=== PATIENT | female | born 1995 | race Caucasian/White ===

== ENCOUNTER 2019-07-12 06:51 | Outpatient (CLI) | payer OTHER, SELFPAY ==
[2019-07-12 07:15] LABS: Basophils Percent Auto 0.4 % (0.2-1.2); Eosinophils Absolute Auto 0.2 K/mm3 (0-0.3); Eosinophils Percent Auto 2.3 % (0-4.4); Hematocrit 41.3 % (37.0-47.0); Hemoglobin 13.8 g/dL (12.0-15.0); Immature Granulocyte Absolute 0.02 K/mm3 (0.00-0.031); Immature Granulocyte Percent A 0.3 % (0-0.5); Lymphocytes Absolute Auto 2.15 K/mm3 (0.9-3.2); Lymphocytes Percent Auto 29.3 % (18.3-44.2); Mean Corpuscular HGB Conc 33.4 g/dl (32-36); Mean Corpuscular Hemoglobin 29.4 pg (26-34); Mean Corpuscular Volume 87.9 fl (80-100); Mean Platelet Volume 10.1 fl (7.4-10.4); Monocytes Absolute Auto 0.6 K/mm3 (0.1-0.6); Neutrophils Absolute Auto 4.4 K/mm3 (1.3-6.7); Neutrophils Percent Auto 59.7 % (45.5-73.1); Platelet Count Result 278 k/mm3 (150-375); Red Cell Distribution Width 12.4 % (11.5-14.5); White Blood Count 7.3 K/mm3 (4.5-10.0)
[2019-07-12 07:28] LABS: Alanine Aminotransferase 32 U/L (4-35); Albumin Level 4.5 g/dL (3.5-5.1); Alkaline Phosphatase 56 U/L (38-126); Aspartate Amino Transferase 39 U/L (14-36); Bilirubin,Total 0.6 mg/dL (0.2-1.3); Blood Urea Nitrogen 16 mg/dL (7-17); Calcium 9.8 mg/dL (8.4-10.2); Carbon Dioxide 22 mmol/L (22-30); Chloride 103 mmol/L (98-107); Cholesterol 219 mg/dL (0-200); Estimated Glomerular Filt Rate > 60; Glucose 109 mg/dL (65-105); HDL Direct 42 mg/dL; Potassium 4.3 mmol/L (3.4-5.0); Sodium 138 mmol/L (137-145); Triglycerides 198 mg/dL (<150)
[2019-07-12 07:39] LABS: LDL Cholesterol Direct 174 mg/dL
== END 2019-07-12 06:52 | disposition home or self-care (01) ==
PROVIDERS: PCP Family Medicine; Visit Provider Nurse Practitioner
DX: R53.83 Other fatigue (principal); I10 Essential (primary) hypertension; E55.9 Vitamin D deficiency, unspecified; E78.5 Hyperlipidemia, unspecified
CPT/HCPCS: 36415; 80053; 80061; 82306; 84443; 85025

== ENCOUNTER 2019-12-19 07:55 | Outpatient (CLI) | payer OTHER, SELFPAY ==
[2019-12-19 08:38] LABS: Basophils Percent Auto 0.5 % (0.2-1.2); Eosinophils Absolute Auto 0.1 K/mm3 (0-0.3); Eosinophils Percent Auto 1.9 % (0-4.4); Hematocrit 41.7 % (37.0-47.0); Hemoglobin 13.7 g/dL (12.0-15.0); Immature Granulocyte Absolute 0.01 K/mm3 (0.00-0.031); Immature Granulocyte Percent A 0.2 % (0-0.5); Lymphocytes Absolute Auto 1.92 K/mm3 (0.9-3.2); Lymphocytes Percent Auto 30.8 % (18.3-44.2); Mean Corpuscular HGB Conc 32.9 g/dl (32-36); Mean Corpuscular Hemoglobin 29.8 pg (26-34); Mean Corpuscular Volume 90.8 fl (80-100); Mean Platelet Volume 10.4 fl (7.4-10.4); Monocytes Absolute Auto 0.5 K/mm3 (0.1-0.6); Monocytes Percent Auto 7.2 % (2.6-8.5); Neutrophils Absolute Auto 3.7 K/mm3 (1.3-6.7); Neutrophils Percent Auto 59.4 % (45.5-73.1); Platelet Count Result 248 k/mm3 (150-375); Red Blood Count 4.59 M/mm3 (4.2-5.4); Red Cell Distribution Width 12.6 % (11.5-14.5); White Blood Count 6.2 K/mm3 (4.5-10.0)
[2019-12-19 08:47] LABS: Hemoglobin A1C 5.1 % (<5.7)
[2019-12-19 08:52] LABS: Alanine Aminotransferase 35 U/L (4-35); Albumin Level 4.3 g/dL (3.5-5.1); Alkaline Phosphatase 59 U/L (38-126); Aspartate Amino Transferase 39 U/L (14-36); Bilirubin,Total 0.4 mg/dL (0.2-1.3); Blood Urea Nitrogen 14 mg/dL (7-17); Calcium 9.5 mg/dL (8.4-10.2); Carbon Dioxide 25 mmol/L (22-30); Chloride 106 mmol/L (98-107); Cholesterol 227 mg/dL (0-200); Estimated Glomerular Filt Rate > 60; Glucose 106 mg/dL (65-105); HDL Direct 45 mg/dL; Potassium 4.5 mmol/L (3.4-5.0); Sodium 139 mmol/L (137-145); Triglycerides 167 mg/dL (<150)
[2019-12-19 09:03] LABS: LDL Cholesterol Direct 166 mg/dL
[2019-12-19 09:52] LABS: Iron 80 ug/dL (37-170); Percent Iron Saturation 17 % (20-50); Vitamin D 25 Hydroxy 47.9 ng/mL
== END 2019-12-19 07:56 | disposition home or self-care (01) ==
LOC: ANHLAB 07:58
PROVIDERS: PCP Family Medicine; Visit Provider Nurse Practitioner
DX: E78.5 Hyperlipidemia, unspecified (principal); I10 Essential (primary) hypertension; R53.83 Other fatigue; E55.9 Vitamin D deficiency, unspecified; R73.9 Hyperglycemia, unspecified; E53.8 Deficiency of other specified B group vitamins
CPT/HCPCS: 36415; 80053; 80061; 82306; 82607; 83036; 83540; 83550; 84443; 85025

== ENCOUNTER 2021-01-21 06:44 | Outpatient (CLI) | payer OTHER, SELFPAY ==
[2021-01-21 07:40] LABS: Basophils Percent Auto 0.4 % (0.2-1.2); Eosinophils Absolute Auto 0.2 K/mm3 (0-0.3); Eosinophils Percent Auto 2.5 % (0-4.4); Hematocrit 41.2 % (37.0-47.0); Hemoglobin 13.3 g/dL (12.0-15.0); Immature Granulocyte Absolute 0.02 K/mm3 (0.00-0.031); Immature Granulocyte Percent A 0.3 % (0-0.5); Lymphocytes Absolute Auto 1.95 K/mm3 (0.9-3.2); Lymphocytes Percent Auto 28.7 % (18.3-44.2); Mean Corpuscular HGB Conc 32.3 g/dl (32-36); Mean Corpuscular Hemoglobin 28.9 pg (26-34); Mean Corpuscular Volume 89.6 fl (80-100); Mean Platelet Volume 10.3 fl (7.4-10.4); Monocytes Absolute Auto 0.6 K/mm3 (0.1-0.6); Monocytes Percent Auto 8.4 % (2.6-8.5); Neutrophils Absolute Auto 4.1 K/mm3 (1.3-6.7); Neutrophils Percent Auto 59.7 % (45.5-73.1); Platelet Count Result 288 k/mm3 (150-375); Red Cell Distribution Width 13.1 % (11.5-14.5); White Blood Count 6.8 K/mm3 (4.5-10.0)
[2021-01-21 07:44] LABS: Alanine Aminotransferase 35 U/L (4-35); Albumin Level 4.3 g/dL (3.5-5.1); Anion Gap 6 mmol/L (8-16); Aspartate Amino Transferase 38 U/L (14-36); Bilirubin,Total 0.6 mg/dL (0.2-1.3); Blood Urea Nitrogen 14 mg/dL (7-17); Calcium 9.7 mg/dL (8.4-10.2); Carbon Dioxide 25 mmol/L (22-30); Chloride 107 mmol/L (98-107); Cholesterol 248 mg/dL (0-200); Estimated Glomerular Filt Rate > 60; Glucose 118 mg/dL (65-110); HDL Direct 43 mg/dL; Potassium 4.3 mmol/L (3.4-5.0); Sodium 138 mmol/L (137-145); Triglycerides 197 mg/dL (<150)
[2021-01-21 07:45] LABS: Alkaline Phosphatase 71 U/L (38-126)
[2021-01-21 07:55] LABS: LDL Cholesterol Direct 149 mg/dL
== END 2021-01-21 06:45 | disposition home or self-care (01) ==
LOC: ANHLAB 06:47
PROVIDERS: PCP Family Medicine; Visit Provider Nurse Practitioner Family
DX: E78.5 Hyperlipidemia, unspecified (principal); D64.9 Anemia, unspecified; I10 Essential (primary) hypertension; R79.0 Abnormal level of blood mineral
CPT/HCPCS: 36415; 80053; 80061; 82728; 85025

== ENCOUNTER 2021-02-18 07:29 | Outpatient (CLI) | payer OTHER, SELFPAY ==
[2021-02-18 08:19] LABS: Erythrocyte Sedimentation Rate 16 mm/hr (0-20)
[2021-02-18 09:31] LABS: Rheumatoid Factor < 8.6 IU/ML (<12)
[2021-02-18 09:44] LABS: Hemoglobin A1C 5.1 % (<5.7)
== END 2021-02-18 07:30 | disposition home or self-care (01) ==
PROVIDERS: PCP Family Medicine; Visit Provider Nurse Practitioner Family
DX: R73.01 Impaired fasting glucose (principal); M79.643 Pain in unspecified hand
CPT/HCPCS: 36415; 83036; 85652; 86430

== ENCOUNTER 2021-07-27 10:22 | Outpatient (CLI) | payer OTHER, BC, SELFPAY ==
--- NOTE | ~2021-07-27 | XR_ITS ---
XR lumbar spine 2-3V DATE: 07/27/2021 12:02 INDICATION: Fall on ice one week ago. Back pain, sacrococcygeal pain TECHNIQUE: 3 views COMPARISON: None FINDINGS: There are 6 functional lumbar vertebrae. Normal alignment of the lumbar spine. No fracture or bone destruction or spondylolisthesis. Lumbar lumbosacral interspaces are well preserved. Spina bifida occulta at L6. The sacroiliac joints appear normal. IMPRESSION: Spina bifida occulta at L6 Reviewed, dictated and finalized at location A. LINE HANGER IMPRESSION: Spina bifida occulta at L6
== END 2021-07-27 10:23 | disposition home or self-care (01) ==
LOC: ANHIMG 10:35
PROVIDERS: PCP Family Medicine
DX: S30.0XXA Contusion of lower back and pelvis, initial encounter (principal); Q05.7 Lumbar spina bifida without hydrocephalus
CPT/HCPCS: 72100

== ENCOUNTER 2022-06-18 14:35 | Outpatient (CLI) | payer BC, SELFPAY ==
[2022-06-18] VITALS (21 sets, daily range): BP systolic 126–145; BP diastolic 85–95; PULSE 94–117; TEMP 36.7; O2SAT 98–100
[2022-06-18 15:44] LABS: Basophils Percent Auto 0.2 % (0.2-1.2); Eosinophils Absolute Auto 0.1 K/mm3 (0-0.3); Eosinophils Percent Auto 0.9 % (0-4.4); Hematocrit 37.5 % (37.0-47.0); Hemoglobin 12.2 g/dL (12.0-15.0); Immature Granulocyte Absolute 0.06 K/mm3 (0.00-0.031); Immature Granulocyte Percent A 0.5 % (0-0.5); Lymphocytes Absolute Auto 1.57 K/mm3 (0.9-3.2); Lymphocytes Percent Auto 14.2 % (18.3-44.2); Mean Corpuscular HGB Conc 32.5 g/dl (32-36); Mean Corpuscular Hemoglobin 27.5 pg (26-34); Mean Corpuscular Volume 84.5 fl (80-100); Mean Platelet Volume 10.7 fl (7.4-10.4); Monocytes Absolute Auto 0.7 K/mm3 (0.1-0.6); Monocytes Percent Auto 6.1 % (2.6-8.5); Neutrophils Absolute Auto 8.6 K/mm3 (1.3-6.7); Neutrophils Percent Auto 78.1 % (45.5-73.1); Platelet Count Result 231 k/mm3 (150-375); Red Blood Count 4.44 M/mm3 (4.2-5.4); Red Cell Distribution Width 14.8 % (11.5-14.5); White Blood Count 11.1 K/mm3 (4.5-10.0)
[2022-06-18 15:45] LABS: Appearance Urine Clear (Clear); Bilirubin Urine Negative (Negative); Blood Urine Trace-intact (Negative); Color Urine Yellow (Yellow); Glucose Urine UA Negative (Negative); Ketones Urine Negative (Negative); Leukocyte Esterase Ur Negative LEU/UL (Negative); Nitrate Urine Negative (Negative); Protein Urine 1+ mg/dL (Negative); Specific Grav Ur 1.015 (1.001-1.035); Urobilinogen Urine 0.2 mg/dL (<2.0)
[2022-06-18 15:54] LABS: Bacteria Urine Trace /hpf; Mucus Urine Rare /lpf; RBC Urine 0-2 /hpf (0-2); Squamous Epithelial Cell Urine Occasional /hpf (Few); WBC Urine 0-3 /hpf
[2022-06-18 15:57] LABS: Add Urine Microscopic? YES
[2022-06-18 16:03] LABS: Alanine Aminotransferase 19 U/L (6-35); Albumin Level 3.4 g/dL (3.5-5.1); Alkaline Phosphatase 222 U/L (38-126); Anion Gap 8 mmol/L (8-16); Aspartate Amino Transferase 23 U/L (14-36); Bilirubin,Total 0.4 mg/dL (0.2-1.3); Blood Urea Nitrogen 10 mg/dL (7-17); Calcium 9.5 mg/dL (8.4-10.2); Carbon Dioxide 20 mmol/L (22-30); Chloride 107 mmol/L (98-107); Estimated Glomerular Filt Rate > 60; Glucose 164 mg/dL (65-110); Potassium 4.1 mmol/L (3.4-5.0); Sodium 135 mmol/L (137-145); Uric Acid 7.4 mg/dL (2.5-7.5)
[2022-06-18 16:04] LABS: Creatinine Urine 115.4 mg/dL; Total Protein Urine Random 23 mg/dL
--- NOTE | 2022-06-18 17:06 | PC.NURSE ---
Dr. Leon informed of BP's, lab results, and reactive NST. Order for discharge received.
== END 2022-06-18 17:08 | disposition home or self-care (01) ==
LOC: ANHOBOP 14:40 → ANHOBPP 14:46
PROVIDERS: PCP Family Medicine; Visit Provider Obstetrics & Gynecology
DX: O13.9 Gestational [pregnancy-induced] hypertension without significant proteinuria, unspecified trimester (principal); Z3A.00 Weeks of gestation of pregnancy not specified
CPT/HCPCS: 36415; 59025; 80053; 81001; 82570; 84156; 84550; 85025; 99199

== ENCOUNTER 2022-06-22 12:25 | Outpatient (CLI) | payer BC, SELFPAY ==
[2022-06-22] VITALS (8 sets, daily range): BP systolic 119–148; BP diastolic 77–97; PULSE 86–106
[2022-06-22 13:35] LABS: Basophils Percent Auto 0.2 % (0.2-1.2); Eosinophils Absolute Auto 0.1 K/mm3 (0-0.3); Hematocrit 36.4 % (37.0-47.0); Hemoglobin 11.7 g/dL (12.0-15.0); Immature Granulocyte Absolute 0.09 K/mm3 (0.00-0.031); Immature Granulocyte Percent A 0.9 % (0-0.5); Lymphocytes Absolute Auto 1.45 K/mm3 (0.9-3.2); Lymphocytes Percent Auto 15.2 % (18.3-44.2); Mean Corpuscular HGB Conc 32.1 g/dl (32-36); Mean Corpuscular Hemoglobin 26.9 pg (26-34); Mean Corpuscular Volume 83.7 fl (80-100); Mean Platelet Volume 10.9 fl (7.4-10.4); Monocytes Absolute Auto 0.8 K/mm3 (0.1-0.6); Monocytes Percent Auto 8.3 % (2.6-8.5); Neutrophils Absolute Auto 7.1 K/mm3 (1.3-6.7); Neutrophils Percent Auto 74.4 % (45.5-73.1); Platelet Count Result 204 k/mm3 (150-375); Red Blood Count 4.35 M/mm3 (4.2-5.4); Red Cell Distribution Width 14.7 % (11.5-14.5); White Blood Count 9.5 K/mm3 (4.5-10.0)
--- NOTE | 2022-06-22 13:37 | PC.NURSE ---
Addendum entered by Maria Esther Gonzalez RN 06/22/22 13:38: Patient came in to be evaluated for elevated blood pressures. Has been monitoring BP at home. Patient states she had a headache which she took Tylenol for at 1015 before arrival. Now rating headache pain a 1 and does not want anything for nausea. Dr. Leon notified. Original Note: Paged Dr. Leon at 1303. Call returned at 1306. Discussed patient status, vitals, and tracing. Orders placed for PI orders. Will call back with results.
[2022-06-22 13:49] LABS: Alanine Aminotransferase 19 U/L (6-35); Albumin Level 3.3 g/dL (3.5-5.1); Alkaline Phosphatase 220 U/L (38-126); Anion Gap 8 mmol/L (8-16); Aspartate Amino Transferase 24 U/L (14-36); Bilirubin,Total 0.5 mg/dL (0.2-1.3); Blood Urea Nitrogen 9 mg/dL (7-17); Calcium 9.3 mg/dL (8.4-10.2); Carbon Dioxide 18 mmol/L (22-30); Chloride 110 mmol/L (98-107); Estimated Glomerular Filt Rate > 60; Glucose 93 mg/dL (65-110); Potassium 3.9 mmol/L (3.4-5.0); Sodium 136 mmol/L (137-145); Uric Acid 7.3 mg/dL (2.5-7.5)
[2022-06-22 14:03] LABS: Appearance Urine Clear (Clear); Bilirubin Urine Negative (Negative); Blood Urine Negative (Negative); Color Urine Yellow (Yellow); Glucose Urine UA Negative (Negative); Ketones Urine Negative (Negative); Leukocyte Esterase Ur Trace LEU/UL (NEGATIVE); Nitrate Urine Negative (Negative); Protein Urine Trace mg/dL (Negative); Specific Grav Ur 1.015 (1.001-1.035); Urobilinogen Urine 0.2 mg/dL (<2.0)
[2022-06-22 14:11] LABS: Creatinine Urine 159.9 mg/dL; Total Protein Urine Random 14 mg/dL; Ur Ttl Prot Creatinine Ratio 0.09 mg/mg (0-0.20)
[2022-06-22 14:12] LABS: Bacteria Urine Trace /hpf; Mucus Urine Rare /lpf; Squamous Epithelial Cell Urine Occasional /hpf (Few)
[2022-06-22 14:17] LABS: Add Urine Microscopic? YES
--- NOTE | 2022-06-22 14:18 | PC.NURSE ---
Spoke with Dr. Leon regarding patient's status, tracing, and lab values. Verbal orders for discharge. Patient agrees with plan of care and states she has no questions at this time.
== END 2022-06-22 14:24 | disposition home or self-care (01) ==
LOC: ANHOBOP 12:38 → ANHOBPP 12:39
PROVIDERS: PCP Family Medicine; Visit Provider Obstetrics & Gynecology
DX: O16.9 Unspecified maternal hypertension, unspecified trimester (principal)
CPT/HCPCS: 36415; 59025; 80053; 81001; 82570; 84156; 84550; 85025; 87086; 99199

== ENCOUNTER 2022-06-28 16:52 | Inpatient (IN) | payer BC, SELFPAY ==
[2022-06-28] VITALS (12 sets, daily range): BP systolic 124–136; BP diastolic 73–102; PULSE 87–106; TEMP 36.5
--- NOTE | 2022-06-28 17:36 | LDADM ---
This patient, Belen Auguste, was admitted to Labor/Delivery/Recovery 108 on 06/28/22 at 16:52. Plans for labor, pain management and were discussed with patient. Patient/family oriented to hospital policies and general routines including ID bracelet, bed and alarms, visiting hours, pain management, procedures, bathroom and other care routines, personal items, smoking policy, room service/diet and guest tray routines, security routines, and visiting hours. Patient/Family are encouraged to report perceived risks to care and to ask questions if they do not understand what they are told or what they should do. See OBIX for further documentation.
[2022-06-28 17:40] LABS: Basophils Percent Auto 0.2 % (0.2-1.2); Eosinophils Absolute Auto 0.1 K/mm3 (0-0.3); Eosinophils Percent Auto 0.6 % (0-4.4); Hematocrit 39.2 % (37.0-47.0); Hemoglobin 12.7 g/dL (12.0-15.0); Immature Granulocyte Absolute 0.06 K/mm3 (0.00-0.031); Immature Granulocyte Percent A 0.5 % (0-0.5); Lymphocytes Absolute Auto 1.62 K/mm3 (0.9-3.2); Lymphocytes Percent Auto 14.1 % (18.3-44.2); Mean Corpuscular HGB Conc 32.4 g/dl (32-36); Mean Corpuscular Volume 83.4 fl (80-100); Mean Platelet Volume 10.9 fl (7.4-10.4); Monocytes Absolute Auto 0.8 K/mm3 (0.1-0.6); Monocytes Percent Auto 7.3 % (2.6-8.5); Neutrophils Absolute Auto 8.9 K/mm3 (1.3-6.7); Neutrophils Percent Auto 77.3 % (45.5-73.1); Platelet Count Result 238 k/mm3 (150-375); Red Cell Distribution Width 14.8 % (11.5-14.5); White Blood Count 11.5 K/mm3 (4.5-10.0)
[2022-06-28] MEDS: DINOPROSTONE 10 MG VAG INSERT VAGINAL (17:43)
[2022-06-29] VITALS (157 sets, daily range): BP systolic 114–165; BP diastolic 64–120; PULSE 61–164; RESP 16–18; TEMP 36.4–36.9; O2SAT 93–100; BMI 41.3
[2022-06-29] MEDS: ZOLPIDEM TARTRATE (*CRX) 5 MG TABLET PO (01:10)
[2022-06-29] MEDS: LACTATED RINGERS 1,000 ML 125 ML IV CONT ×2 (05:37→08:06)
[2022-06-29] MEDS: OXYTOCIN 30 UNITS/NS 500 ML 30 UNITS/500 ML BAG 4 UNITS IV CONT (05:39)
--- NOTE | 2022-06-29 08:47 | WPDOBADMIT ---
Obstetrics - Admit Note Admission Note: record reviewed. Additions to the history and/or subsequent changes in the physical findings follow. 27 y/o G1 at 39 1/7 weeks gestation with CHTN, here for induction of labor. GBS neg. Cervidil last night, has been withdrawn. Is having painful contractions and has had SROM of clear fluid. Epidural in place. AVSS with bp 130-150/80-90 NST reactive TOCO: contractions every 2-4 min Cervix 8/100/0. IUPC placed. A: IUP at term with CHTN, here for induction of labor. P: Oxytocin. Anticipate .
--- NOTE | 2022-06-29 09:21 | WPDANESEPPF ---
Anes - Initial Pre Proc Eval Procedure: labor epidural Date/Time: 06/29/22 09:21 Surgeon: Rebel Leon MD Pre Op Diagnosis: labor pain Pre Op Diagnosis: IOL Patient Data Age: 27 Gender: F Height: Weight: Last Vital Signs Temp 36.4 C 06/29/22 06:53 Pulse 111 H 06/29/22 09:15 BP 144/93 H 06/29/22 09:15 Pulse Ox 100 06/29/22 09:20 O2 Del Method Room Air 06/28/22 17:36 Allergies Allergy/AdvReac Type Severity Reaction Status Date / Time No Known Allergies Allergy Verified 06/07/22 15:28 Home Medications Medication Instructions Recorded Confirmed Type prenat.vits,dustin,tkr-prre-iluzv 1 tablet PO DAILY 06/07/22 06/07/22 History Laboratory Tests 06/28/22 06/28/22 06/28/22 17:26 17:26 17:26 WBC 11.5 K/mm3 H K/mm3 (4.5-10.0) RBC 4.70 M/mm3 M/mm3 (4.2-5.4) Hgb 12.7 g/dL g/dL (12.0-15.0) Hct 39.2 % % (37.0-47.0) MCV 83.4 fl fl (80-100) MCH 27.0 pg pg (26-34) MCHC 32.4 g/dl g/dl (32-36) RDW 14.8 % H % (11.5-14.5) Plt Count 238 k/mm3 k/mm3 (150-375) MPV 10.9 fl H fl (7.4-10.4) Immature Gran % (Auto) 0.5 % % (0-0.5) Neut % (Auto) 77.3 % H % (45.5-73.1) Lymph % (Auto) 14.1 % L % (18.3-44.2) [place] % (Auto) 7.3 % % (2.6-8.5) Eos % (Auto) 0.6 % % (0-4.4) Baso % (Auto) 0.2 % % (0.2-1.2) Lymph # (Auto) 1.62 K/mm3 K/mm3 (0.9-3.2) [place] # (Auto) 0.8 K/mm3 H K/mm3 (0.1-0.6) Eos # (Auto) 0.1 K/mm3 K/mm3 (0-0.3) Baso # (Auto) 0.0 K/mm3 K/mm3 (0.0-0.1) Abs Immat Gran (auto) 0.06 K/mm3 H K/mm3 (0.00-0.031) Absolute Neuts (auto) 8.9 K/mm3 H K/mm3 (1.3-6.7) Absolute Nucleated RBC 0.0 K/mm3 K/mm3 (0.0-0.012) Nucleated RBC % 0.0 % % (0.0-0.2) RPR Pending Blood Type A Positive Antibody Screen Negative Patient hx anesthesia problems: none Family hx anesthesia problems: none Results Review: All pre-operative results and documents have been reviewed as part of the pre-operative evaluation. [facility] Past Medical History Medical History Anxiety Essential hypertension GERD without esophagitis Hyperlipidemia Family History Family History Father Hypertension Family history of elevated blood lipids Grandparent Hypertension Family history of malignant neoplasm of cervix Family history of malignant neoplasm of esophagus Social History Social History (Updated 02/05/21 @ 16:20 by Cherri Greene NP) Social History: , no children. 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 Smoking status: Never smoker Alcohol intake: current Substance use: never Lack of Transportation: No Lack of Food: Never True Current Housing: I Have Housing Concerned About Future Housing: No Difficulty Paying Gas/Electric Bills: No Difficulty Paying for Meds: No Currently Unemployed: No Education: Bachelor's Degree Difficulty w/ Childcare or Family Care: No Spiritual care concerns: No Anes - Eval Final PreProcedure Day of Procedure 06/29/22 09:21 Patient weight: morbidly obese ASA classification: III Anesthetic plan: proceed Anesthesia type and monitoring: regional epidural and standard monitoring Results Review: All pre-operative results and documents have been reviewed as part of the pre-operative evaluation. Informed Consent: The patient's anesthetic plan and its attendant risks and benefits were discussed with the patient/family/POA. Questions were solicited and answers provided to the satisfaction of the patient/family/POA.
[2022-06-29] MEDS: ONDANSETRON INJ 4 MG/2 ML VIAL IV PUSH (10:20)
[2022-06-29 12:32] LABS: Rapid Plasma Reagin Non-Reactive (NonReactive)
--- NOTE | 2022-06-29 14:07 | PM.OBPRVD ---
OB - Delivery Note Procedure Delivery date: 06/29/22 Procedure: Induction of labor with Events: Chronic Hypertension Induction method: Per Cervidil Protocol Delivery augmentation: Pitocin Delivery monitor: External FHT, External Uterine and Internal Uterine Route of delivery: Laceration Description: Perineal - 2nd Degree Delivery repair: vicryl (3-0) Specimen: Yes (cord blood, placenta) Quantitative Blood Loss (ml): 240 Anesthesia type: Epidural Disposition: PACU Complications: None Narrative: 27 y/o G1 at 39 1/7 weeks gestation who presented to the hospital for induction of labor. Cervidil was placed overnight, then withdrawn the next morning. She had SROM of clear fluid. Oxytocin was administered intravenously. She received an epidural for pain control. Her labor progressed and her cervix dilated completely. She pushed with good effort and delivered the infant's head to the perineum, followed by the body. The nose and mouth were bulb suctioned. After a delay, the cord was clamped and cut. The infant was handed off the field. Cord blood was collected. The placenta delivered spontaneously and was grossly normal in appearance. The usual 3 vessel cord was noted. A second degree midline perineal laceration was sustained. This was reapproximated using 3 0 Vicryl in the usual layered fashion. Excellent hemostasis resulted as did excellent reapproximation of the normal anatomy. Needle and instrument counts were correct. The patient was taken to recovery room in stable condition. The went to the nursery in stable condition. I was present and scrubbed for the entire delivery. Baby Date of : 06/29/22 Time of : 13:40 Weeks of gestation at delivery: 39 Weight (pounds): 7 Weight (ounces): 14 presentation: vertex position: Left Occiput Posterior Placenta delivery description: Spontaneous and Normal Configuration Cord Vessel Description: 3 Vessels and Delayed Cord Clamping score one minute: 9 score five minutes: 9
--- NOTE | 2022-06-29 14:11 | P.DS_ITS ---
DS: Admitting Diagnosis Discharge Date 07/01/22 Admitting Diagnosis IUP at 39 weeks Chronic HTN DS: Discharge Diagnosis Discharge Diagnosis (1) (normal spontaneous vaginal delivery): Code(s): O80 - Encounter for full-term uncomplicated delivery Status: Acute (2) Chronic hypertension affecting : Code(s): O10.919 - Unspecified pre-existing hypertension complicating , unspecified trimester Status: Acute OB - DS: Summary OB Procedures : None OB Procedures Intrapartum: Spontaneous Vag Delivery OB Procedures: : None Time Spent with Patient Time attestation: Total time spent providing and/or coordinating discharge services: DS: Data Data Completed and Pending Labs on day of discharge: Labs from last 24 hours 06/28/22 06/28/22 06/28/22 17:26 17:26 17:26 WBC 11.5 H RBC 4.70 Hgb 12.7 Hct 39.2 MCV 83.4 MCH 27.0 MCHC 32.4 RDW 14.8 H Plt Count 238 MPV 10.9 H Immature Gran % (Auto) 0.5 Neut % (Auto) 77.3 H Lymph % (Auto) 14.1 L Person % (Auto) 7.3 Eos % (Auto) 0.6 Baso % (Auto) 0.2 Lymph # (Auto) 1.62 Person # (Auto) 0.8 H Eos # (Auto) 0.1 Baso # (Auto) 0.0 Abs Immat Gran (auto) 0.06 H Absolute Neuts (auto) 8.9 H Absolute Nucleated RBC 0.0 Nucleated RBC % 0.0 RPR Non-reactive Blood Type A Positive Antibody Screen Negative Discharge Plan Discharge Attending physician on discharge: Rebel Leon Discharging Clinician: Rebel Leon Patient Disposition: Home, Self-Care Activity: pelvic rest Diet: regular Discharge Instructions: Call or return if temperature above 100.4? F, increased abdominal pain, increased vaginal bleeding or any new problems. Stand Alone Forms: General Discharge Information Follow-up/Referrals: Rebel Leon MD [Physician] - 6 Weeks Discharge Medications: New ibuprofen 600 mg tablet 600 mg PO Q6H PRN (Reason: cramps) Qty: 30 0RF Continued #2 Tablet 1 tablet PO DAILY Date of admission: 06/28/22 16:52 Primary Care Provider: Freddie Dash Admitting Provider: Rebel Leon Attending physician on admission: Rebel Leon Condition: Stable
[2022-06-29] MEDS: OXYTOCIN 30 UNITS/NS 500 ML 30 UNITS/500 ML BAG 125 UNITS IV CONT (14:16)
--- NOTE | 2022-06-29 16:45 | OBPPTRN ---
Patient transferred to post room #286 via wheelchair. Support person present. Oriented to unit, room, information board, rooming in, admission packet and security measures. Patient verbalizes understanding.
[2022-06-29] MEDS: IBUPROFEN 600 MG TABLET PO ×2 (17:19→23:40)
[2022-06-29] MEDS: DOCUSATE SODIUM 100 MG CAPSULE PO (17:19)
[2022-06-29] MEDS: ACETAMINOPHEN 325 MG TABLET 650 MG PO (20:30)
[2022-06-30] MEDS: ACETAMINOPHEN 325 MG TABLET 650 MG PO ×2 (04:10→23:00)
[2022-06-30 04:20] VITALS: BP 128/84; PULSE 85; RESP 18; TEMP 36.9
[2022-06-30 05:43] LABS: Hematocrit 32.6 % (37.0-47.0); Hemoglobin 10.6 g/dL (12.0-15.0)
[2022-06-30 07:55] VITALS: BP 112/64; PULSE 88; RESP 18; TEMP 37.1; O2SAT 100
[2022-06-30] MEDS: MULTIVIT/MIN/PREN/FOL AC/IRON TABLET 1 TAB PO (08:00)
[2022-06-30] MEDS: IBUPROFEN 600 MG TABLET PO ×3 (08:09→23:00)
[2022-06-30] MEDS: DOCUSATE SODIUM 100 MG CAPSULE PO ×2 (08:09→17:10)
[2022-06-30 11:30] VITALS: BP 133/80; PULSE 101; RESP 16; TEMP 37.3; O2SAT 100
--- NOTE | 2022-06-30 12:29 | PM.OBPNVD ---
OB - PN: Subj Subjective Date/time seen: 06/30/22 12:29 Narrative: Pain OK. OB - PN: Obj Data Labs 06/30/22 04:29 Labs: Laboratory Results - last 24 hr 06/28/22 06/30/22 17:26 04:29 Hgb 10.6 L Hct 32.6 L RPR Non-reactive OB - PN A/P Plan Comments: A: PPD#1, doing well. P: Routine care. Exam Psych: Other: AVSS ABD soft, nontender, fundus firm EXT nontender
--- NOTE | 2022-06-30 14:23 | WPDANLDPN2 ---
Anes-Prog Note L&D Date/Time: 06/30/22 14:23 Comfortable throughout: labor and delivery Neuraxial method: epidural Epidural/Spinal procedure site: clean & non-tender Neuro status: Neuro function grossly intact. Cardiovascular status: normal Respiratory status: normal Airway patency: baseline Mental status: baseline Post-Op hydration status: normal Vital Signs: Last Vital Signs Temp 37.3 C 06/30/22 11:30 Pulse 101 H 06/30/22 11:30 Resp 16 06/30/22 11:30 BP 133/80 06/30/22 11:30 Pulse Ox 100 06/30/22 11:30 O2 Del Method Room Air 06/29/22 20:30 Pain score (VAS): 06/08 I/O: Intake & Output 06/29/22 06/30/22 06/30/22 23:59 07:59 15:59 Intake Total 400 240 Output Total 95 Balance 305 240 Post-procedural complaints: none Patient feedback: Patient satisfied with anesthetic care. Other findings: small hot spot to right hip otherwise compfortable for L/D
--- NOTE | 2022-06-30 15:26 | PC.NURSE ---
[id number] Introductions were made, then consulted with patient to assess needs related to . Mother led the conversation with her?plans to feed?her infant and the?experience so far. Resources provided for inpatient and outpatient services with the mom/baby guide. Mother voiced understanding of information and requests assistance. Encouraged understanding of the benefits of skin to skin (demonstrating unwrapping and placing upright on her chest), stimulating with massage touch, changing positions to encourage wakefulness, how to watch for early feeding cues, responsive feeding, feeding on demand (aiming for 8-12 times in 24 hours, about every 2-3 hours), milk production, building/maintaining a milk supply, duration of feeding, signs of adequate intake/output and how to record on the feeding sheet. Reviewed positioning and ear, shoulder, hip alignment, supporting the breast to facilitate a deep latch, asymmetrical latch (off-center), leading with the chin with a big, open, wide gape and body close to mother. latched optimally to the left breast in football position. Education given to mother of how to visualize suck/swallow ratios and listen for drinking at the breast. Infant was able to maintain latch without discomfort to mother. Nipple care reviewed with optimal latch and good positioning. After an effective breastfeed infant was placed skin to skin with massage touch to stimulate for burps and to watch for feeding cues. Once feeding cues were visualized the was assisted in a laid-back cross cradle position to the right breast. Infant was effectively and mother denied pain. We reviewed how to watch and listen for swallowing at the breast and to keep actively with good rocking, suck, swallow ratios. Reviewed good handwashing when or touching the breast/nipples to prevent infection. Resources used to facilitate learning were used with the tool, mom and baby guide. Mother voiced understanding of skin to skin, stimulating with massage touch, responsive feedings, hand expressed colostrum, talking to infant to encourage if it has been 2 -2.5 hours since the start of the last , to call if does not latch, or if there is discomfort with . Resources provided for inpatient/outpatient with the mom/baby guide. Parents voiced understanding of information, demonstrated learning and will call if there is a request for assistance. Reported to the primary RN.
[2022-06-30 19:30] VITALS: BP 136/86; PULSE 99; RESP 18; TEMP 36.4
[2022-07-01] MEDS: IBUPROFEN 600 MG TABLET PO (05:10)
[2022-07-01] MEDS: MEASLES,MUMPS,RUBELLA VACCINE 0.5 ML VIAL SUB-Q (07:41)
[2022-07-01 08:21] VITALS: BP 128/84; PULSE 95; RESP 18; TEMP 36.6; O2SAT 99
[2022-07-01] MEDS: ACETAMINOPHEN 325 MG TABLET 650 MG PO (08:24)
[2022-07-01] MEDS: MULTIVIT/MIN/PREN/FOL AC/IRON TABLET 1 TAB PO (08:24)
--- NOTE | 2022-07-01 08:51 | PM.OBPNVD ---
OB - PN: Subj Subjective Date/time seen: 07/01/22 08:51 Narrative: Pain OK. Would like to go home. OB - PN: Obj Data Labs 06/30/22 04:29 OB - PN A/P Plan day: 2 Comments: A: PPD#2, doing well. P: Home to f/u 6 weeks. Exam Psych: Other: AVSS ABD soft, nontender, fundus firm EXT nontender
--- NOTE | 2022-07-01 11:33 | PC.NURSE ---
[id number] Purposely rounded to assess needs. Mother is demonstrating cross cradle position with latched to the right breast. RN observes space between infants cheek and mothers breast along with infants body turned away from the mother. Mother received the offer of repositioning infant and a more optimal latch. Mother repositioned infant to the right breast using the football positioning, supported with pillows to bring the to nipple level, waiting for the big, open, wide gape, then latching with chin buried into the breast, nose near with a mouthful of breast. Reminded mother of how to watch and listen for swallowing at the breast. Mother states the left nipple is sore and there is a approximate 1mm red spot in the middle of the left nipple exposed to air because mother states it is uncomfortable to have anything touching the nipple. Recommended breast shells and mother received them. Discussed healing with water, open to air,and protecting the nipple with good positioning and an optimal latch. Reminded parents to use good handwashing technique to prevent infection. Mother is feeding appropriately for growth of and understands stimulating infant to eat if needed. Infant has had adequate feedings in the last 24 hours meets the outcomes for weight, output and jaundice at this time. Mother states she is confident to continue effectively her infant at home, when to call for assistance and denies any additional assistance or education at this time. Reinforced understanding of milk production, transition of milk, signs of adequate intake, transition of stool, prevention/relief of engorgement, responsive watching for feeding cues, the different methods of stimulating to breastfeed 2-3 hours after the start of the last feeding, community resources, medication information reviewed per [employer] and when to call a provider using the resource of the mom and baby guide. Parents voiced understanding of the education shared. Reported to the primary RN.
--- NOTE | 2022-07-01 12:00 | PC.NURSE ---
Patient viewed the discharge video Mother & Baby Care, The First Two Weeks . Patient was given the opportunity and encouraged to ask questions. Patient verbalized understanding of information shared and has been given the mother/baby guide for home reference.
[2022-07-02 09:38] VITALS: BP 121/78; PULSE 91; RESP 20; TEMP 37.6; O2SAT 100
== END 2022-07-01 12:15 | disposition home or self-care (01) | DRG 807 ==
LOC: ANHLDR 06-29 13:13 → ANHOB2 06-29 16:47
PROVIDERS: Admitting Provider Obstetrics & Gynecology; PCP Family Medicine; Visit Provider Obstetrics & Gynecology
DX: O10.92 Unspecified pre-existing hypertension complicating childbirth (principal); Z37.0 Single live birth; Z3A.39 39 weeks gestation of pregnancy; O36.8330 Maternal care for abnormalities of the fetal heart rate or rhythm, third trimester, not applicable or unspecified; O70.1 Second degree perineal laceration during delivery
CPT/HCPCS: 36415; 84112; 85014; 85018; 85025; 86592; 86850; 86900; 86901; 88307; 90710; A9270; J2405; J2590; J2795; J7120

== ENCOUNTER 2022-08-04 16:44 | Emergency (ER) | payer BC, SELFPAY ==
--- NOTE | ~2022-08-04 | US_ITS ---
EXAMINATION: US abdomen limited DATE: 08/04/2022 20:06 INDICATION: epigastric pain, abnormal LFTs TECHNIQUE: Multiple grayscale and Doppler ultrasound images of limited portions of the abdomen were o btained. COMPARISON: None available. FINDINGS: The visualized portions of the pancreas are normal. The liver is normal with normal echogen icity and echotexture. No surface nodularity. Normal hepatopetal flow in the main portal vein. Multip le nonmobile, shadowing gallstones with twinkle artifact. No wall thickening or pericholecystic fluid . The common bile duct measures mm. There was no sonographic Aguilar sign, however the patient is repo rtedly on pain medication. IMPRESSION: Cholelithiasis. No sonographic evidence of cholecystitis, noting that the sonographic Aguilar sign is not reliable with concurrent administration of pain medications. Reviewed, dictated and finalized at location K. ESTATE SALES ASSOCIATE IMPRESSION: Cholelithiasis. No sonographic evidence of cholecystitis, noting that the sonog raphic Aguilar sign is not reliable with concurrent administration of pain medic ations.
[2022-08-04 17:13] VITALS: BP 145/91; PULSE 89; RESP 16; TEMP 36.4; O2SAT 100
[2022-08-04 17:59] LABS: Basophils Percent Auto 0.3 % (0.2-1.2); Eosinophils Absolute Auto 0.1 K/mm3 (0-0.3); Eosinophils Percent Auto 1.3 % (0-4.4); Hematocrit 42.6 % (37.0-47.0); Hemoglobin 13.7 g/dL (12.0-15.0); Immature Granulocyte Absolute 0.02 K/mm3 (0.00-0.031); Immature Granulocyte Percent A 0.3 % (0-0.5); Lymphocytes Absolute Auto 0.86 K/mm3 (0.9-3.2); Lymphocytes Percent Auto 11.1 % (18.3-44.2); Mean Corpuscular HGB Conc 32.2 g/dl (32-36); Mean Corpuscular Hemoglobin 26.7 pg (26-34); Mean Platelet Volume 11.2 fl (7.4-10.4); Monocytes Absolute Auto 0.6 K/mm3 (0.1-0.6); Monocytes Percent Auto 7.1 % (2.6-8.5); Neutrophils Absolute Auto 6.2 K/mm3 (1.3-6.7); Neutrophils Percent Auto 79.9 % (45.5-73.1); Platelet Count Result 267 k/mm3 (150-375); Red Blood Count 5.13 M/mm3 (4.2-5.4); Red Cell Distribution Width 14.1 % (11.5-14.5); White Blood Count 7.8 K/mm3 (4.5-10.0)
--- NOTE | 2022-08-04 18:01 | ED.ABDPAIN ---
HPI - Abdominal Pain General Chief Complaint: Abdominal Pain Stated Complaint: left abdominal pain Time Seen by Provider: 08/04/22 17:41 History of Present Illness HPI narrative: Patient is a 27-year-old female presenting with left-sided abdominal pain. Patient states that she is approximately 5 weeks . States that for the last 2 weeks she has had intermittent left upper quadrant pain that radiates into her left upper back. States that she had an episode yesterday as well as today. She has an appointment with her GIS ADMINISTRATOR tomorrow but they advised that she come in for evaluation today. She denies any nausea or vomiting. States she has had a couple episodes of diarrhea. No constipation or dysuria. States she still has a small amount of slightly bloody vaginal discharge which is unchanged since delivering. No fevers or chills, cough, chest pain, shortness of breath, lightheadedness, leg swelling. Took Gas-X earlier which improved the pain. Related Data Home Medications Medication Instructions Recorded Confirmed prenat.vits,dustin,lcb-zbsx-tokno 1 tablet PO DAILY 06/07/22 06/07/22 Allergies Allergy/AdvReac Type Severity Reaction Status Date / Time No Known Allergies Allergy Verified 08/04/22 17:45 Review of Systems Review of Systems: All systems reviewed & are unremarkable except as noted in HPI and below PMFSH Past Medical History Medical History Anxiety Essential hypertension GERD without esophagitis Hyperlipidemia Family History Family History Father Hypertension Family history of elevated blood lipids Grandparent Hypertension Family history of malignant neoplasm of cervix Family history of malignant neoplasm of esophagus Social History Social History Social History: , no children. 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 Smoking status: Never smoker Alcohol intake: current Substance use: never Lack of Transportation: No Lack of Food: Never True Current Housing: I Have Housing Concerned About Future Housing: No Difficulty Paying Gas/Electric Bills: No Difficulty Paying for Meds: No Currently Unemployed: No Education: Bachelor's Degree Difficulty w/ Childcare or Family Care: No Spiritual care concerns: No Exam Narrative: GENERAL: Well-appearing, well-nourished, and in no acute distress. HEAD: Normocephalic, atraumatic. EYES: PERRLA and EOMI. ENT: Nares clear, no rhinorrhea or epistaxis. Mucous membranes moist. NECK: Supple. CHEST: Clear to auscultation. No respiratory distress. HEART: Regular rate and rhythm. No murmur heard. Normal peripheral pulses. ABDOMEN: Soft, nontender, nondistended, normal active bowel sounds. EXTREMITIES: Normal range of motion. No edema. SKIN: Warm, dry, no rash. NEURO: No focal deficits. Alert and oriented x3. PSYCH: Normal mood and affect. Course Vital Signs Vital signs: Vital Signs Temperature 97.5 F L 08/04/22 17:13 Pulse Rate 89 08/04/22 17:13 Respiratory Rate 16 08/04/22 17:13 Blood Pressure 145/91 H 08/04/22 17:13 Pulse Oximetry 100 08/04/22 17:13 Oxygen Delivery Room Air 08/04/22 17:13 Temperature 97.5 F L 08/04/22 17:13 Pulse Rate 68 08/04/22 21:42 Respiratory Rate 17 08/04/22 21:42 Blood Pressure 135/79 08/04/22 21:42 Pulse Oximetry 100 08/04/22 21:42 Oxygen Delivery Room Air 08/04/22 17:13 MDM - Abdominal Pain MDM Narrative Medical decision making narrative: Patient is a 27-year-old female presenting with intermittent left upper quadrant and left flank pain for several weeks. Patient is mildly hypertensive, his vitals are within normal limits. Exam is unremarkable. No tenderness on palpation. Blood work with transaminitis, this appears new. Will obtain a right upper quadran
[2022-08-04 18:06] LABS: Appearance Urine Clear (Clear); Bacteria Urine None Seen /hpf; Bilirubin Urine Negative (Negative); Blood Urine 3+ (Negative); Color Urine Yellow (Yellow); Glucose Urine UA Negative (Negative); Ketones Urine Negative (Negative); Leukocyte Esterase Ur Negative LEU/UL (Negative); Nitrate Urine Negative (Negative); Non Pathogenic Casts 0-2; Protein Urine Negative (Negative); Specific Grav Ur 1.006 (1.001-1.035); Squamous Epithelial Cell Urine None seen /hpf (Few); Urobilinogen Urine 0.2 mg/dL (<2.0); WBC Urine 0-5 /hpf
[2022-08-04 18:09] LABS: Add Urine Microscopic? YES
[2022-08-04 18:17] LABS: Alanine Aminotransferase 217 U/L (6-35); Albumin Level 4.9 g/dL (3.5-5.1); Alkaline Phosphatase 243 U/L (38-126); Anion Gap 8 mmol/L (8-16); Aspartate Amino Transferase 333 U/L (14-36); Bilirubin,Total 1.5 mg/dL (0.2-1.3); Blood Urea Nitrogen 18 mg/dL (7-17); Calcium 9.9 mg/dL (8.4-10.2); Carbon Dioxide 26 mmol/L (22-30); Chloride 103 mmol/L (98-107); Estimated CRCL calculation 93 ml/min; Estimated Glomerular Filt Rate > 60; Glucose 101 mg/dL (65-110); Lipase 143 U/L (23-300); Potassium 4.9 mmol/L (3.4-5.0); Sodium 137 mmol/L (137-145)
[2022-08-04] MEDS: SODIUM CHLORIDE 0.9% IV 1,000 ML 999 ML IV CONT (18:23)
[2022-08-04] MEDS: FAMOTIDINE 20 MG/2 ML VIAL IV PUSH (18:23)
[2022-08-04 18:28] VITALS: BP 122/85; PULSE 84; RESP 18; O2SAT 99
[2022-08-04 21:42] VITALS: BP 135/79; PULSE 68; RESP 17; O2SAT 100
== END 2022-08-04 21:44 | disposition home or self-care (01) ==
PROVIDERS: Emergency Medicine; Emergency Provider Emergency Medicine; PCP Family Medicine
DX: R10.12 Left upper quadrant pain (principal); O90.9 Complication of the puerperium, unspecified; I10 Essential (primary) hypertension; K21.9 Gastro-esophageal reflux disease without esophagitis; E78.5 Hyperlipidemia, unspecified; R94.5 Abnormal results of liver function studies
CPT/HCPCS: 36415; 76705; 80053; 81001; 81025; 83690; 85025; 96361; 96374; 99284; J7030

== ENCOUNTER 2022-08-12 14:11 | Outpatient (CLI) | payer BC, SELFPAY ==
[2022-08-12 14:59] LABS: Alanine Aminotransferase 44 U/L (6-35); Alkaline Phosphatase 161 U/L (38-126); Aspartate Amino Transferase 31 U/L (14-36); Bilirubin,Total 0.7 mg/dL (0.2-1.3)
== END 2022-08-12 14:12 | disposition home or self-care (01) ==
LOC: ANHLAB 14:13
PROVIDERS: PCP Family Medicine; Visit Provider Surgery
DX: R74.8 Abnormal levels of other serum enzymes (principal)
CPT/HCPCS: 36415; 80076

== ENCOUNTER 2022-09-10 11:34 | Outpatient (CLI) | payer BC, SELFPAY ==
--- NOTE | ~2022-09-10 | NM_ITS ---
EXAMINATION: NM hepatobiliary wo pharm DATE: 09/10/2022 15:29 INDICATION: Epigastric abdominal pain. Cholelithiasis. COMPARISON: Ultrasound 08/04/2022 TECHNIQUE: 5 mCi Tc-99m mebrofenin (Choletec) was administered intravenously. Scintigraphic images o f the abdomen were obtained for one hour. Then, the patient drank 8 oz Ensure, and imaging was contin ued for 60 minutes. FINDINGS: There is normal clearance of radiotracer from the blood pool. There is homogeneous tracer u ptake by the liver. Activity progresses to the bowel and gallbladder. Gallbladder ejection fraction (GBEF) was 37%. Note that with this technique, normal GBEF >= 33%. IMPRESSION: 1. Normal hepatobiliary scintigraphy. Reviewed, dictated and finalized at location A.
== END 2022-09-10 11:35 | disposition home or self-care (01) ==
PROVIDERS: PCP Family Medicine; Visit Provider Surgery
DX: K80.20 Calculus of gallbladder without cholecystitis without obstruction (principal); R10.13 Epigastric pain
CPT/HCPCS: 78226; A9537

== ENCOUNTER 2023-10-28 08:45 | Outpatient (CLI) | payer BC, SELFPAY ==
[2023-10-28 14:14] LABS: Basophils Percent Auto 0.4 % (0.2-1.2); Eosinophils Absolute Auto 0.2 K/mm3 (0-0.3); Eosinophils Percent Auto 1.6 % (0-4.4); Hematocrit 43.7 % (37.0-47.0); Hemoglobin 14.2 g/dL (12.0-15.0); Immature Granulocyte Absolute 0.03 K/mm3 (0.00-0.031); Immature Granulocyte Percent A 0.3 % (0-0.5); Lymphocytes Absolute Auto 2.27 K/mm3 (0.9-3.2); Lymphocytes Percent Auto 21.3 % (18.3-44.2); Mean Corpuscular HGB Conc 32.5 g/dl (32-36); Mean Corpuscular Hemoglobin 28.8 pg (26-34); Mean Corpuscular Volume 88.6 fl (80-100); Mean Platelet Volume 11.1 fl (7.4-10.4); Monocytes Absolute Auto 0.7 K/mm3 (0.1-0.6); Monocytes Percent Auto 6.6 % (2.6-8.5); Neutrophils Absolute Auto 7.4 K/mm3 (1.3-6.7); Neutrophils Percent Auto 69.8 % (45.5-73.1); Platelet Count Result 265 k/mm3 (150-375); Red Blood Count 4.93 M/mm3 (4.2-5.4); Red Cell Distribution Width 13.4 % (11.5-14.5); White Blood Count 10.6 K/mm3 (4.5-10.0)
[2023-10-28 15:30] LABS: Alanine Aminotransferase 19 U/L (6-35); Albumin Level 4.3 g/dL (3.5-5.1); Alkaline Phosphatase 66 U/L (38-126); Anion Gap 8 mmol/L (4-12); Aspartate Amino Transferase 53 U/L (14-36); Bilirubin,Total 0.6 mg/dL (0.2-1.3); Blood Urea Nitrogen 8 mg/dL (7-17); Calcium 9.9 mg/dL (8.4-10.2); Carbon Dioxide 21 mmol/L (22-30); Chloride 107 mmol/L (98-107); Cholesterol 218 mg/dL (0-200); Estimated Glomerular Filt Rate > 60; Glucose 90 mg/dL (65-110); HDL Direct 45 mg/dL; Potassium 4.1 mmol/L (3.4-5.0); Sodium 136 mmol/L (137-145); Triglycerides 201 mg/dL (<150)
[2023-10-28 15:41] LABS: LDL Cholesterol Direct 151 mg/dL
== END 2023-10-28 08:46 | disposition home or self-care (01) ==
LOC: ANHGOSHLAB 08:46
PROVIDERS: PCP Internal Medicine; Visit Provider Nurse Practitioner
DX: E78.5 Hyperlipidemia, unspecified (principal); D64.9 Anemia, unspecified; R74.8 Abnormal levels of other serum enzymes
CPT/HCPCS: 36415; 80053; 80061; 85025

== ENCOUNTER 2024-05-03 16:30 | Outpatient (CLI) | payer BC, SELFPAY ==
[2024-05-03] VITALS (7 sets, daily range): BP systolic 117–132; BP diastolic 79–90; PULSE 78–89
[2024-05-03 17:06] LABS: Basophils Percent Auto 0.2 % (0.2-1.2); Eosinophils Absolute Auto 0.1 K/mm3 (0-0.3); Eosinophils Percent Auto 0.7 % (0-4.4); Hemoglobin 12.8 g/dL (12.0-15.0); Immature Granulocyte Absolute 0.07 K/mm3 (0.00-0.031); Immature Granulocyte Percent A 0.6 % (0-0.5); Lymphocytes Absolute Auto 2.03 K/mm3 (0.9-3.2); Lymphocytes Percent Auto 16.7 % (18.3-44.2); Mean Corpuscular HGB Conc 32.8 g/dl (32-36); Mean Corpuscular Hemoglobin 28.1 pg (26-34); Mean Corpuscular Volume 85.7 fl (80-100); Mean Platelet Volume 11.2 fl (7.4-10.4); Monocytes Absolute Auto 0.7 K/mm3 (0.1-0.6); Neutrophils Absolute Auto 9.2 K/mm3 (1.3-6.7); Neutrophils Percent Auto 75.8 % (45.5-73.1); Platelet Count Result 207 k/mm3 (150-375); Red Blood Count 4.55 M/mm3 (4.2-5.4); Red Cell Distribution Width 14.6 % (11.5-14.5); White Blood Count 12.1 K/mm3 (4.5-10.0)
[2024-05-03 17:07] LABS: Add Urine Microscopic? NO; Appearance Urine Clear (Clear); Bilirubin Urine Negative (Negative); Blood Urine Negative (Negative); Color Urine Yellow (Yellow); Glucose Urine UA Negative (Negative); Ketones Urine Negative (Negative); Leukocyte Esterase Ur Negative LEU/UL (Negative); Nitrate Urine Negative (Negative); Protein Urine Negative (Negative); Specific Grav Ur 1.006 (1.001-1.035); Urobilinogen Urine 0.2 mg/dL (<2.0); pH Urine 6.5 (5.0-9.0)
[2024-05-03 17:20] LABS: Alanine Aminotransferase 14 U/L (6-35); Albumin Level 4.1 g/dL (3.5-5.1); Alkaline Phosphatase 146 U/L (38-126); Anion Gap 9 mmol/L (4-12); Aspartate Amino Transferase 22 U/L (14-36); Bilirubin,Total 0.6 mg/dL (0.2-1.3); Blood Urea Nitrogen 8 mg/dL (7-17); Calcium 9.7 mg/dL (8.4-10.2); Carbon Dioxide 20 mmol/L (22-30); Chloride 107 mmol/L (98-107); Estimated Glomerular Filt Rate > 60; Glucose 81 mg/dL (65-110); Potassium 4.3 mmol/L (3.4-5.0); Sodium 136 mmol/L (137-145); Uric Acid 6.7 mg/dL (2.5-7.5)
--- NOTE | 2024-05-03 18:09 | PC.NURSE ---
Dr. Leon notified of NST, lab results, and vital signs. Okay to discharge.
[2024-05-03 18:25] LABS: Creatinine Urine 33.8 mg/dL; Total Protein Urine Random 18 mg/dL; Ur Ttl Prot Creatinine Ratio 0.53 mg/mg (0-0.20)
== END 2024-05-03 18:10 | disposition home or self-care (01) ==
LOC: ANHOBOP 16:37 → ANHOBPP 16:40
PROVIDERS: PCP Internal Medicine; Visit Provider Obstetrics & Gynecology
DX: O13.9 Gestational [pregnancy-induced] hypertension without significant proteinuria, unspecified trimester (principal); Z3A.00 Weeks of gestation of pregnancy not specified
CPT/HCPCS: 36415; 59025; 80053; 81003; 82570; 84156; 84550; 85025; 99199

== ENCOUNTER 2024-05-08 17:03 | Inpatient (IN) | payer BC, SELFPAY ==
[2024-05-08 17:43] VITALS: BMI 42.1
--- NOTE | 2024-05-08 17:45 | LDADM ---
This patient, Belen Auguste, was admitted to Labor/Delivery/Recovery 106 on 05/08/24 at 17:03. Plans for labor, pain management and were discussed with patient. Patient/family oriented to hospital policies and general routines including ID bracelet, bed and alarms, visiting hours, pain management, procedures, bathroom and other care routines, personal items, smoking policy, room service/diet and guest tray routines, security routines, and visiting hours. Patient/Family are encouraged to report perceived risks to care and to ask questions if they do not understand what they are told or what they should do. See OBIX for further documentation.
[2024-05-08 18:00] VITALS: TEMP 36.8
[2024-05-08 18:14] LABS: Basophils Percent Auto 0.2 % (0.2-1.2); Eosinophils Absolute Auto 0.1 K/mm3 (0-0.3); Eosinophils Percent Auto 0.5 % (0-4.4); Hematocrit 37.1 % (37.0-47.0); Hemoglobin 12.6 g/dL (12.0-15.0); Immature Granulocyte Absolute 0.05 K/mm3 (0.00-0.031); Immature Granulocyte Percent A 0.5 % (0-0.5); Lymphocytes Absolute Auto 1.77 K/mm3 (0.9-3.2); Lymphocytes Percent Auto 16.2 % (18.3-44.2); Mean Corpuscular Hemoglobin 28.4 pg (26-34); Mean Corpuscular Volume 83.7 fl (80-100); Mean Platelet Volume 10.9 fl (7.4-10.4); Monocytes Absolute Auto 0.6 K/mm3 (0.1-0.6); Monocytes Percent Auto 5.4 % (2.6-8.5); Neutrophils Absolute Auto 8.4 K/mm3 (1.3-6.7); Neutrophils Percent Auto 77.2 % (45.5-73.1); Platelet Count Result 196 k/mm3 (150-375); Red Blood Count 4.43 M/mm3 (4.2-5.4); Red Cell Distribution Width 14.6 % (11.5-14.5); White Blood Count 10.9 K/mm3 (4.5-10.0)
[2024-05-08] MEDS: DINOPROSTONE 10 MG VAG INSERT VAGINAL (18:19)
[2024-05-08 19:08] LABS: HIV 1/2 Ab P24 Ag Result Negative (Negative)
[2024-05-08 19:23] VITALS: BP 144/96; PULSE 91
[2024-05-08 19:30] VITALS: BP 139/93; PULSE 88
[2024-05-08 19:48] LABS: Rapid Plasma Reagin Non-Reactive (NonReactive)
[2024-05-08 20:00] VITALS: BP 143/91; PULSE 97
[2024-05-08 20:17] LABS: Alanine Aminotransferase 13 U/L (6-35); Albumin Level 3.9 g/dL (3.5-5.1); Alkaline Phosphatase 134 U/L (38-126); Anion Gap 8 mmol/L (4-12); Aspartate Amino Transferase 25 U/L (14-36); Bilirubin,Total 0.6 mg/dL (0.2-1.3); Blood Urea Nitrogen 12 mg/dL (7-17); Calcium 10.3 mg/dL (8.4-10.2); Carbon Dioxide 19 mmol/L (22-30); Chloride 108 mmol/L (98-107); Estimated CRCL calculation 140 ml/min; Estimated Glomerular Filt Rate > 60; Glucose 83 mg/dL (65-110); Potassium 3.9 mmol/L (3.4-5.0); Sodium 135 mmol/L (137-145); Uric Acid 7.2 mg/dL (2.5-7.5)
[2024-05-09] VITALS (177 sets, daily range): BP systolic 68–139; BP diastolic 27–100; PULSE 79–142; RESP 18; TEMP 36.4–37.6; O2SAT 96–100
[2024-05-09] MEDS: OXYTOCIN 30 UNITS/NS 500 ML 30 UNITS/500 ML BAG IV CONT (05:49)
[2024-05-09] MEDS: LACTATED RINGERS 1,000 ML 125 ML IV CONT ×3 (05:49→15:10)
--- NOTE | 2024-05-09 09:01 | WPDOBADMIT ---
Obstetrics - Admit Note Admission Note: record reviewed. Additions to the history and/or subsequent changes in the physical findings follow. 28 y/o at 38 weeks with CHTN, worsening bp control. Mild headache today, no visual field change. Here for induction of labor. GBS neg. Cervidil overnight, has been withdrawn. Now receiving oxytocin. Feeling contractions. AVSS NST reactive TOCO: irregular contractions ABD soft, nontender, gravid, vertex Cervix 2-3/80/-2. AROM with clear fluid EXT nontender A: IUP at 38 weeks with CHTN, worsening bp control, here for induction of labor. P: Oxytocin. Anticipate .
--- NOTE | 2024-05-09 11:04 | P.PNAN_ITS ---
Anes - Initial Pre Proc Eval Date/Time: 05/09/24 11:04 Surgeon: Rebel Leon MD Pre Op Diagnosis: IOL Patient Data Age: 28 Gender: F Height: 1.6 m Weight: 108 kg Last Vital Signs Temp 37.2 C 05/09/24 06:27 Pulse 87 05/09/24 11:00 BP 113/63 05/09/24 11:00 Pulse Ox 100 05/09/24 11:03 O2 Del Method Room Air 05/08/24 17:43 Allergies Allergy/AdvReac Type Severity Reaction Status Date / Time No Known Allergies Allergy Verified 04/23/24 15:36 Home Medications ?Medication ?Instructions ?Recorded ?Confirmed ?Type PNV 153-FA 400 mcg-om3 35 mg-dha 1 tablet PO DAILY 11/03/23 04/23/24 History 25 mg-epa 5 mg-fish oil chew tablet ( Gummies) aspirin 81 mg capsule 81 mg PO DAILY 11/03/23 04/23/24 History Laboratory Tests 05/08/24 17:32 WBC 10.9 H K/mm3 (4.5-10.0) RBC 4.43 M/mm3 (4.2-5.4) Hgb 12.6 g/dL (12.0-15.0) Hct 37.1 % (37.0-47.0) MCV 83.7 fl (80-100) MCH 28.4 pg (26-34) MCHC 34.0 g/dl (32-36) RDW 14.6 H % (11.5-14.5) Plt Count 196 k/mm3 (150-375) MPV 10.9 H fl (7.4-10.4) Immature Gran % (Auto) 0.5 % (0-0.5) Neut % (Auto) 77.2 H % (45.5-73.1) Lymph % (Auto) 16.2 L % (18.3-44.2) [place] % (Auto) 5.4 % (2.6-8.5) Eos % (Auto) 0.5 % (0-4.4) Baso % (Auto) 0.2 % (0.2-1.2) Lymph # (Auto) 1.77 K/mm3 (0.9-3.2) [place] # (Auto) 0.6 K/mm3 (0.1-0.6) Eos # (Auto) 0.1 K/mm3 (0-0.3) Baso # (Auto) 0.0 K/mm3 (0.0-0.1) Abs Immat Gran (auto) 0.05 H K/mm3 (0.00-0.031) Absolute Neuts (auto) 8.4 H K/mm3 (1.3-6.7) Absolute Nucleated RBC 0.000 K/mm3 (0.0-0.012) Nucleated RBC % 0.0 % (0.0-0.2) Sodium 135 L mmol/L (137-145) Potassium 3.9 mmol/L (3.4-5.0) Chloride 108 H mmol/L (98-107) Carbon Dioxide 19 L mmol/L (22-30) Anion Gap 8 mmol/L (4-12) BUN 12 mg/dL (7-17) Creatinine 0.60 L mg/dL (0.7-1.0) Estim Creat Clear Calc 140 ml/min Estimated GFR > 60 (59 - ) Glucose 83 mg/dL (65-110) Uric Acid 7.2 mg/dL (2.5-7.5) Calcium 10.3 H mg/dL (8.4-10.2) Total Bilirubin 0.6 mg/dL (0.2-1.3) AST 25 U/L (14-36) ALT 13 U/L (6-35) Alkaline Phosphatase 134 H U/L (38-126) Total Protein 7.0 g/dL (6.3-8.2) Albumin 3.9 g/dL (3.5-5.1) RPR Non-reactive (NonReactive) HIV 1&2 Ab/P24 Ag 4thGn Negative (Negative) Blood Type A Positive Antibody Screen Negative Patient hx anesthesia problems: none Family hx anesthesia problems: none Results Review: All pre-operative results and documents have been reviewed as part of the pre- operative evaluation. 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 Smoking status: Former smoker Alcohol intake: current Substance use: never Do You Feel Safe in your Home?: Yes Lack of Transportation: No Lack of Food: Never True Current Housing: I Have Housing Concerned About Future Housing: No Difficulty Paying Gas/Electric Bills: No Difficulty Paying for Meds: No Currently Unemployed: No Education: Bachelor's Degree Difficulty w/ Childcare or Family Care: No Spiritual care concerns: No Anes - Eval Final PreProcedure Day of Procedure 05/09/24 11:04 Patient weight: morbidly obese Heart: regular rate and rhythm Lungs: clear to auscultation Neurological: alert and oriented ASA classification: III Emergent: no Anesthetic plan: proceed Anesthesia type and monitoring: regional epidural and standard monitoring Results Review: All pre-operative results and documents have been reviewed as part of the pre- operative evaluation. Informed Consent: The patient's anesthetic plan and its attendant risks and benefits were discussed with the patient/family/POA. Questions were solicited and answers provided to the satisfaction of the patient/family/POA.
--- NOTE | 2024-05-09 12:50 | PM.OBPNLAB ---
Pain Control Date/time seen: 05/09/24 12:05 Comments: Comfortable. Pelvic Exam Dilation (cm): 5 Effacement (%): 80 station: -2 Comments: IUPC placed Contractions Contraction frequency: 4 Status status: Category l Assessment and Plan Comments: Continue labor.
--- NOTE | 2024-05-09 14:59 | PM.OBPNLAB ---
Pain Control Date/time seen: 05/09/24 14:59 Comments: Comfortable Pelvic Exam Dilation (cm): 7 Effacement (%): 80 station: 0 Contractions Monitor mode: Internal Contraction frequency: 3 Status status: Category l Assessment and Plan Plan: continuous present management
[2024-05-09] MEDS: ONDANSETRON INJ 4 MG/2 ML VIAL IV PUSH (15:32)
--- NOTE | 2024-05-09 16:33 | PM.OBPRVD ---
OB - Vaginal Delivery Note Procedure Delivery date: 05/09/24 Events: Chronic Hypertension Induction method: Per Cervidil Protocol Delivery augmentation: Rupture of Membranes and Pitocin Delivery monitor: External FHT, External Uterine and Internal Uterine Route of delivery: Episiotomy description: None Laceration Description: Perineal - 2nd Degree Delivery repair: vicryl (3-0) Specimen: Yes (cord blood) Quantitative Blood Loss (ml): 320 Anesthesia type: Epidural Disposition: PACU Complications: None Narrative: 28 y/o at 37 6/7 weeks gestation who presented to the hospital for induction of labor. Cervidil was placed overnight, then withdrawn the following morning. Oxytocin was administered intravenously. Amniotomy was performed with return of clear fluid. She received an epidural for pain control. Her labor progressed and her cervix dilated completely. She pushed with good effort and delivered the 's head to the perineum, followed by the body. The nose and mouth were bulb suctioned. After a delay, the cord was clamped and cut. The was handed off the field. Cord blood was collected. The placenta delivered spontaneously and was grossly normal in appearance. The usual 3 vessel cord was noted. A second degree midline perineal laceration was sustained. This was reapproximated using 3 0 Vicryl in the usual layered fashion. Excellent hemostasis resulted as did excellent reapproximation of the normal anatomy. Needle and instrument counts were correct. The patient was taken to recovery room in stable condition. The went to the nursery in stable condition. I was present and scrubbed for the entire delivery. Baby Date of : 05/09/24 Time of : 16:14 Gestational Age by Date: 37 gender: Male Weight (pounds): 5 Weight (ounces): 15 presentation: vertex position: Left Occiput Anterior Placenta delivery description: Spontaneous and Normal Configuration Cord Vessel Description: Delayed Cord Clamping score one minute: 8 score five minutes: 9
--- NOTE | 2024-05-09 16:36 | PM.OBDSVD ---
DS: Admitting Diagnosis Admitting Diagnosis IUP at 37 6/7 weeks Chronic HTN with worsening bp control DS: Discharge Diagnosis Discharge Diagnosis (1) (normal spontaneous vaginal delivery): Code(s): O80 - Encounter for full-term uncomplicated delivery Status: Acute OB - DS: Summary OB Procedures : None OB Procedures Intrapartum: Spontaneous Vag Delivery OB Procedures: : None Peripartum Data Laceration Description: Perineal - 2nd Degree Episiotomy description: None Time Spent with Patient Time attestation: Total time spent providing and/or coordinating discharge services: DS: Data Data Completed and Pending Labs on day of discharge: Labs from last 24 hours 05/08/24 17:32 WBC 10.9 H RBC 4.43 Hgb 12.6 Hct 37.1 MCV 83.7 MCH 28.4 MCHC 34.0 RDW 14.6 H Plt Count 196 MPV 10.9 H Immature Gran % (Auto) 0.5 Neut % (Auto) 77.2 H Lymph % (Auto) 16.2 L [place] % (Auto) 5.4 Eos % (Auto) 0.5 Baso % (Auto) 0.2 Lymph # (Auto) 1.77 [place] # (Auto) 0.6 Eos # (Auto) 0.1 Baso # (Auto) 0.0 Abs Immat Gran (auto) 0.05 H Absolute Neuts (auto) 8.4 H Absolute Nucleated RBC 0.000 Nucleated RBC % 0.0 Sodium 135 L Potassium 3.9 Chloride 108 H Carbon Dioxide 19 L Anion Gap 8 BUN 12 Creatinine 0.60 L Estim Creat Clear Calc 140 Estimated GFR > 60 Glucose 83 Uric Acid 7.2 Calcium 10.3 H Total Bilirubin 0.6 AST 25 ALT 13 Alkaline Phosphatase 134 H Total Protein 7.0 Albumin 3.9 RPR Non-reactive HIV 1&2 Ab/P24 Ag 4thGn Negative Blood Type A Positive Antibody Screen Negative Discharge Plan Discharge Attending physician on discharge: Rebel Leon Discharging Clinician: Rebel Leon Patient Disposition: Home, Self-Care Activity: pelvic rest Diet: regular Discharge Instructions: Call or return if temperature above 100.4? F, increased abdominal pain, increased vaginal bleeding or any new problems. Patient Language: Singaporean Stand Alone Forms: General Discharge Information Follow-up/Referrals: Rebel Leon MD [Physician] - 6 Weeks Discharge Medications: New ibuprofen 600 mg tablet 600 mg PO Q6H PRN (Reason: cramps) Qty: 30 0RF Continued Gummies 400 mcg-35 mg- 25 mg-5 mg tablet,chewable 1 tablet PO DAILY Discontinued aspirin 81 mg capsule 81 mg PO DAILY Date of admission: 05/08/24 17:03 Primary Care Provider: Osvaldo Arana Admitting Provider: Rebel Leon Attending physician on admission: Rebel Leon Condition: Stable
[2024-05-09] MEDS: OXYTOCIN 30 UNITS/NS 500 ML 30 UNITS/500 ML BAG 125 UNITS IV CONT (16:50)
[2024-05-09] MEDS: TRANEXAMIC ACID 1,000MG/ISO100 1,000 MG/100 ML BAG 200 MG IVPB (17:43)
[2024-05-09] MEDS: miSOPROStol 200 MCG TABLET 800 MCG RECTAL (17:46)
[2024-05-09] MEDS: IBUPROFEN 600 MG TABLET PO ×2 (18:37→23:34)
[2024-05-09] MEDS: BENZOCAINE 20% AER SPR (*SP) 56 GM CAN 1 SPRAY TOPICAL (18:55)
[2024-05-09] MEDS: WITCH HAZEL 40 PADS 1 PAD TOPICAL (18:55)
--- NOTE | 2024-05-09 20:24 | OBPPTRN ---
Patient transferred to post room #280 via wheelchair. Support person-spouse present. Oriented to unit, room, information board, rooming in, admission packet and security measures. Patient verbalizes understanding.
[2024-05-09] MEDS: ACETAMINOPHEN 325 MG TABLET 650 MG PO (22:19)
[2024-05-09] MEDS: LANOLIN (LANSINOH) 7.5 GM CREAM 1 APPLIC TOPICAL (22:20)
[2024-05-10] MEDS: DOCUSATE SODIUM 100 MG CAPSULE PO (03:06)
[2024-05-10] MEDS: ACETAMINOPHEN 325 MG TABLET 650 MG PO ×4 (03:36→23:22)
[2024-05-10] MEDS: IBUPROFEN 600 MG TABLET PO ×3 (05:16→23:23)
[2024-05-10 05:17] LABS: Hematocrit 29.7 % (37.0-47.0)
[2024-05-10] MEDS: MULTIVIT/MIN/PREN/FOL AC/IRON TABLET 1 TAB PO (07:25)
[2024-05-10 07:50] VITALS: BP 116/72; PULSE 90; RESP 16; O2SAT 99
--- NOTE | 2024-05-10 07:52 | WPDANLDPN2 ---
Anes-Prog Note L&D Date/Time: 05/10/24 07:52 Comfortable throughout: labor and delivery Neuraxial method: epidural Epidural/Spinal procedure site: clean & non-tender Neuro status: Neuro function grossly intact. Cardiovascular status: normal Respiratory status: normal Airway patency: baseline Mental status: baseline Post-Op hydration status: normal Vital Signs: Last Vital Signs Temp 97.8 F 05/09/24 23:30 Pulse 87 05/09/24 23:30 Resp 18 05/09/24 23:30 BP 121/74 05/09/24 23:30 Pulse Ox 99 05/09/24 23:30 O2 Del Method Room Air 05/08/24 17:43 Pain score (VAS): 0/10 I/O: Intake & Output 05/09/24 05/09/24 05/10/24 15:59 23:59 07:59 Intake Total 1168.7 750.0 Output Total 1030 Balance 1168.7 -280.0 Post-procedural complaints: none Patient feedback: Patient satisfied with anesthetic care.
[2024-05-10 11:57] VITALS: BP 127/71; PULSE 91; RESP 16; TEMP 36.9; O2SAT 98
--- NOTE | 2024-05-10 12:48 | P.PNOB_ITS ---
OB - PN: Subj Subjective Date/time seen: 05/10/24 12:48 Narrative: Pain OK. Would like circumcision for son. OB - PN: Obj Data Labs 05/10/24 03:43 05/08/24 17:32 Labs: Laboratory Results - last 24 hr 05/10/24 03:43 Hgb 10.0 L Hct 29.7 L OB - PN A/P Plan Comments: A: PPD#1, doing well. P: Reviewed circ. Routine care. Plan home tomorrow. Exam 2 Psych: Other: AVSS ABD soft, nontender, fundus firm EXT nontender
--- NOTE | 2024-05-10 13:13 | PC.NURSE ---
[id number] Introductions were made, then consulted with patient to assess needs related to . Discussed with mother her?plans to feed?her infant and the?experience so far. Mother plans on exclusively but has family and baby's big sister in the room. folder given. Resources provided for inpatient and outpatient services with the feeding sheet, mom/baby guide and name written on the communication board. Mother voiced understanding of information and will call when baby is ready to breastfeed next. Reported to the Primary RN. [id number] Consulted with patient to assess needs related to . Discussed with mother her successes, concerns and any questions she has. We reviewed working with the , supporting breast, protecting her nipples with an optimal deep latch, good positioning, and good hand washing. Encouraged understanding the benefits of skin to skin, responding to feeding cues, frequencies of feeding 8-12 times in 24 hours (approximately 2-3 hours), duration of feedings, milk production, intake/output feeding sheet and signs of adequate intake encouraging swallowing at the breast. Reviewed positioning and alignment, supporting breast, off-centered (asymmetrical latch) and leading with the chin with big, open, wide gape. Infant latched optimally to the [right] breast in [football] position. Education given to the mother of how to visualize the suckling (with good rocking jaw motion) swallows (dropping of the lower jaw) and how to listen for drinking at the breast (the ka sound). The was [able] to maintain latch without discomfort to mother. Nipple care reviewed with optimal latch, good positioning and using clean hands when touching her breast. Resources used to facilitate learning were used from the [visual handouts/ tool/mom and baby guide]. Mother voiced understanding of the education shared, to call for assistance if the infant does not latch or if there is discomfort with . Reported to the Primary RN.
[2024-05-10 20:18] VITALS: BP 113/65; PULSE 87; RESP 16; TEMP 36.9
[2024-05-11] MEDS: IBUPROFEN 600 MG TABLET PO (05:09)
[2024-05-11] MEDS: ACETAMINOPHEN 325 MG TABLET 650 MG PO (05:09)
[2024-05-11] MEDS: MULTIVIT/MIN/PREN/FOL AC/IRON TABLET 1 TAB PO (06:50)
[2024-05-11] MEDS: DOCUSATE SODIUM 100 MG CAPSULE PO (06:50)
--- NOTE | 2024-05-11 07:21 | P.PNOB_ITS ---
OB - PN: Subj Subjective Date/time seen: 05/11/24 07:21 Patient comments: no complaints, pain well controlled and tolerating diet OB - PN: Obj Data Labs 05/10/24 03:43 05/08/24 17:32 OB - PN A/P Assessment and Plan (1) (normal spontaneous vaginal delivery): Code(s): O80 - Encounter for full-term uncomplicated delivery Status: Acute Plan home Time Spent With Patient Time: Total time spent is greater than 50% in coordination of care (as documented) at patient's floor/unit and/or counseling patient: Review of Systems 2 Review of Systems: All systems reviewed & are unremarkable except as noted in HPI and below Exam 2 Const: General: cooperative, healthy appearing and comfortable O rientation/consciousness: oriented to person, oriented to place and oriented to time HENMT: Head: normal to inspection Resp: Effort & Inspection: normal respiratory effort Cardio: Rate: regular rate Rhythm: regular rhythm Heart sounds: S1 normal heart sound present and S2 normal heart sound present GI: Inspection: normal to inspection
[2024-05-11 08:10] VITALS: BP 120/56; PULSE 83; RESP 16; TEMP 36.8; O2SAT 100
--- NOTE | 2024-05-11 09:45 | PC.NURSE ---
Mother verbalizes she is able to independently latch with appropriate positioning and alignment. She is experiencing some nipple discomfort, using Lanolin and her own silver murray for comfort, working on getting to open up wider for a deeper latch. Infant is currently meeting outcomes for weight, output, jaundice, blood sugar and feeding frequencies of 8-12 times in 24 hours. Mother did request assistance with measuring her nipples if she decides or needs to use her own breast pump when she is home, both nipples measured at 24mm. Mother is encouraged to call for assistance if her infant doesn?t latch, pain with latching, questions or concerns. Mother voiced understanding of information shared along with the mom/baby guide for an additional resource. Reported to the Primary RN.
[2024-05-14 11:19] VITALS: BP 125/92; PULSE 89; RESP 18; TEMP 36.6
== END 2024-05-11 12:50 | disposition home or self-care (01) | DRG 807 ==
LOC: ANHLDR 05-09 16:37 → ANHOB2 05-09 21:53
PROVIDERS: Admitting Provider Obstetrics & Gynecology; PCP Internal Medicine; Visit Provider Obstetrics & Gynecology
DX: O10.92 Unspecified pre-existing hypertension complicating childbirth (principal); Z37.0 Single live birth; O70.1 Second degree perineal laceration during delivery; Z3A.38 38 weeks gestation of pregnancy
CPT/HCPCS: 36415; 80053; 84550; 85014; 85018; 85025; 86592; 86703; 86850; 86900; 86901; A9270; G0432; J2405; J2590; J2795; J7120

== ENCOUNTER 2024-06-03 14:45 | Emergency (ER) | payer BC, SELFPAY ==
--- NOTE | ~2024-06-03 | CT_ITS ---
CLINICAL INDICATION: Abdominal pain COMPARISON: . TECHNIQUE: Multiple contiguous axial images of the abdomen and pelvis were performed following the ad ministration of with 100 mL Omnipaque-350 intravenous contrast The dose-length product (DLP) was 977.22 mGy-cm. Automated exposure control and iterative reconstruction technique were employed. FINDINGS/OBSERVATIONS: Visualized lower thorax: The bilateral lung bases are clear. The heart is of normal size, without pericardial effusion. Small hiatal hernia is present. Liver: Liver enhances homogeneously and is not enlarged measuring 16 cm in longitudinal dimension. Gallbladder and biliary system: The gallbladder is markedly distended, and demonstrates trace wall thickening and surrounding inflamm atory change. Pancreas: The pancreas enhances homogeneously without ductal dilatation. Spleen: The spleen enhances homogeneously and is not enlarged measuring 8 cm in longitudinal dimension. Kidneys: The left kidney enhances homogeneously without hydronephrosis or renal calculi. Adrenal glands: Unremarkable. Gastrointestinal tract: The cecum projects to the left of midline. Appendix: The appendix is not definitively visualized. However, no pericecal inflammatory change is identified suggest the presence of acute appendicitis. Vasculature: Unremarkable. No aneurysmal dilatation or significant stenosis. Lymph nodes: No pathologically enlarged or morphologically suspicious lymph nodes within the retroperitoneum or at the root of the mesentery. Scattered mesenteric lymphadenopathy is noted, not uncommon for a patient of this age. Pelvic structures: The bladder is minimally distended, and otherwise unremarkable. The uterus is anteverted and anteflexed. Body wall and musculoskeletal: Small fat-containing umbilical hernia. Small supraumbilical fascial defect is also detected without a discrete hernia sac. Partial atrophy of the right lateral rectus muscle. No significant degenerative disease within the lower thoracic or lumbosacral spine. IMPRESSION: Findings for which acute cholecystitis is suspected) which clinical correlation is needed. Reviewed, dictated and finalized at location A. [facility] HELPER
--- NOTE | 2024-06-03 14:58 | ED_ITS ---
HPI - Abdominal Pain General Chief Complaint: Abdominal Pain Stated Complaint: abd pain Time Seen by Provider: 06/03/24 14:49 Source: patient Mode of arrival: ambulatory Limitations: no limitations History of Present Illness HPI narrative: Patient is a 28 y/o female who presents to the ED with c/o ABD pain. Patient reports hx of previously diagnosed gallstones. States she has had intermittent issues with pain over the last 2 years, has seen a surgeon, but opted against surgery at that time. Reports having pain since around 5:00 a.m. this morning. Present throughout right upper quadrant, radiates across her upper abdomen leftward. Pain has been constant since onset. Tried taking Tylenol and ibuprofen without improvement. She did eat a frozen pizza last night for dinner. Reported having nausea and vomiting today. Denies diarrhea, constipation, fevers, urinary complaints. She is 3.5 weeks post with her second . Unremarkable delivery without complications. Related Data Home Medications ?Medication ?Instructions ?Recorded ?Confirmed ?Last Taken ?Type PNV 153-FA 400 mcg-om3 35 mg-dha 1 tablet PO DAILY 11/03/23 04/23/24 1 Day Ago History 25 mg-epa 5 mg-fish oil chew ~04/22/24 tablet ( Gummies) Allergies Allergy/AdvReac Type Severity Reaction Status Date / Time No Known Allergies Allergy Verified 04/23/24 15:36 Review of Systems 2 Review of Systems: All systems reviewed & are unremarkable except as noted in HPI. 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. Smoking status: Former smoker Alcohol intake: current Substance use: never Do You Feel Safe in your Home?: Yes Lack of Transportation: No Lack of Food: Never True Current Housing: I Have Housing Concerned About Future Housing: No Difficulty Paying Gas/Electric Bills: No Difficulty Paying for Meds: No Currently Unemployed: No Education: Bachelor's Degree Difficulty w/ Childcare or Family Care: No Spiritual care concerns: No Exam 2 Narrative: GENERAL: Well appearing, morbidly obese with BMI of 40.6, non-toxic, in no acute distress. HEAD: Normocephalic, atraumatic. RESPIRATORY: Airway patent, respirations nonlabored. Clear to auscultation bilaterally, no rales, rhonchi, wheezing. CARDIOVASCULAR: Regular rate and rhythm without murmurs, rubs, or gallops. ABDOMINAL: Soft, TTP in epigastric region and RUQ, no rebound, nondistended. Normoactive BS. MUSCULOSKELETAL: Moves all extremities. No gross deformities. SKIN: Warm, dry, normal color. NEURO: A&O X3. Speech clear. PSYCHIATRIC: Appropriate mood and affect. Normal interaction. Course Vital Signs Vital signs: Vital Signs Temperature 98.3 F 06/03/24 15:42 Pulse Rate 78 06/03/24 15:42 Respiratory Rate 20 06/03/24 15:42 Blood Pressure 134/96 H 06/03/24 15:42 Pulse Oximetry 98 06/03/24 15:42 Temperature 97.5 F L 06/03/24 19:10 Pulse Rate 84 06/03/24 19:10 Respiratory Rate 16 06/03/24 19:10 Blood Pressure 138/104 H 06/03/24 19:10 Pulse Oximetry 100 06/03/24 19:10 MDM - Abdominal Pain MDM Narrative Medical decision making narrative: Patient presented to ED with right upper quadrant abdominal pain, onset 5:00 a.m. this morning, history of gallstones. Vitals are stable upon arrival. Patient is afebrile. In no acute distress upon my evaluation. Laboratory studies show white blood cell count of 9.7. Stable H&H. CMP unremarkable aside from slightly elevated calcium of 11.3. Likely related to . Discussed this with patient. She does report she has been taking Tums since last night. This may be contributing. Will need rechecked. UA with small amount of blood, no signs of infection. CT scan of abd/pelvis obtained and showing acute cholecystitis. Discussed lab and imaging findings with patient. She states she is feeling much better. She denies any pain upon re-evaluation. She was not given anything for pain in the ED. Discussed case with Dr. Cardenas, general surgery, advised can d/c home on abx and f/u in office this week to schedule cholecystectomy. Patient is agreeable to this plan. Will be started on Augmentin. She is currently . Discussed low-fat diet. Will prescribe pain medication if needed. Discussed strict return precautions. She voiced understanding. Discharged in stable condition. Medical Records Attestation: I reviewed the patient's medical records. Lab Data Attestation: I reviewed the patient's lab results. 06/03/24 15:03 06/03/24 15:03 Labs: Lab Results 06/03/24 Range/Units 15:03 WBC 9.7 (4.5-10.0) K/mm3 RBC 4.43 (4.2-5.4) M/mm3 Hgb 12.1 (12.0-15.0) g/dL Hct 37.0 (37.0-47.0) % MCV 83.5 (80-100) fl MCH 27.3 (26-34) pg MCHC 32.7 (32-36) g/dl RDW 13.4 (11.5-14.5) % Plt Count 330 D (150-375) k/mm3 MPV 10.3 (7.4-10.4) fl Immature Gran % (Auto) 0.4 (0-0.5) % Neut % (Auto) 77.7 H (45.5-73.1) % Lymph % (Auto) 15.4 L (18.3-44.2) % [place] % (Auto) 5.4 (2.6-8.5) % Eos % (Auto) 0.9 (0-4.4) % Baso % (Auto) 0.2 (0.2-1.2) % Lymph # (Auto) 1.49 (0.9-3.2) K/mm3 [place] # (Auto) 0.5 (0.1-0.6) K/mm3 Eos # (Auto) 0.1 (0-0.3) K/mm3 Baso # (Auto) 0.0 (0.0-0.1) K/mm3 Abs Immat Gran (auto) 0.04 H (0.00-0.031) K/mm3 Absolute Neuts (auto) 7.5 H (1.3-6.7) K/mm3 Absolute Nucleated RBC 0.000 (0.0-0.012) K/mm3 Nucleated RBC % 0.0 (0.0-0.2) % Sodium 139 (137-145) mmol/L Potassium 4.2 (3.4-5.0) mmol/L Chloride 107 (98-107) mmol/L Carbon Dioxide 28 (22-30) mmol/L Anion Gap 4 (4-12) mmol/L BUN 17 (7-17) mg/dL Creatinine 0.90 (0.7-1.0) mg/dL Estim Creat Clear Calc 94 ml/min Estimated GFR > 60 (59 - ) Glucose 97 (65-110) mg/dL Calcium 11.3 H (8.4-10.2) mg/dL Total Bilirubin 0.6 (0.2-1.3) mg/dL AST 26 (14-36) U/L ALT 22 (6-35) U/L Alkaline Phosphatase 95 (38-126) U/L Total Protein 8.0 (6.3-8.2) g/dL Albumin 4.3 (3.5-5.1) g/dL Lipase 90 (23-300) U/L Urine Color Yellow (Yellow) Urine Appearance Clear (Clear) Urine pH 5.5 (5.0-9.0) Ur Specific [place] 1.008 (1.001-1.035) Urine Protein Negative (Negative) mg/dL Urine Glucose (UA) Negative (Negative) mg/dL Urine Ketones Negative (Negative) mg/dL Ur Blood (Man) 2+ H (Negative) Urine Nitrate Negative (Negative) Urine Bilirubin Negative (Negative) Urine Urobilinogen 0.2 (<2.0) mg/dL Leukocyte Esterase Rfl Negative (Negative) KARINA/UL Urine RBC 11-20 H (0-2) /hpf Urine WBC 0-5 (0-3) /hpf Ur Squamous Epith Cells None seen (Few) /hpf Urine Bacteria None seen /hpf Urine Casts 0-2 Imaging Data Attestation: I personally reviewed and interpreted this imaging study as follows: Radiologist's impression: ITS Impressions Abdomen/Pelvis CT 06/03/24 17:12 IMPRESSION: Findings for which acute cholecystitis is suspected) which clinical correlation is needed. Discharge Plan Discharge Clinical Impression: Acute cholecystitis, Hypercalcemia Patient Disposition: Home, Self-Care Condition: Stable Instructions: Antibiotic Form, Cholecystitis (ED), Biliary Colic (ED), Low Fat Diet (ED) Additional Instructions: Take antibiotics as prescribed. Follow low-fat diet. Continue Tylenol and ibuprofen as needed for pain, [place] as needed for more severe pain. Zofran as needed for nausea. Contact general surgery office tomorrow to make follow-up appointment for gallbladder removal. Return to the ED if you experience worsening or severe pain, fevers, unable to keep down food or drink, difficulty breathing, or any other symptoms of concern. Your calcium level was slightly elevated today. Follow-up with primary care doctor for laboratory re-check. Patient Language: Urdu Prescriptions: New hydrocodone-acetaminophen 5-325 mg tablet 1 tablet PO Q6H PRN (Reason: pain) Qty: 15 0RF amoxicillin-pot clavulanate 875-125 mg tablet 1 tablet PO Q12H 10 Days Qty: 20 0RF ondansetron 4 mg tablet,disintegrating 4 mg PO Q8H PRN (Reason: nausea and vomiting) Qty: 15 0RF No Action Gummies 400 mcg-35 mg- 25 mg-5 mg tablet,chewable 1 tablet PO DAILY ibuprofen 600 mg tablet 600 mg PO Q6H PRN (Reason: cramps) Qty: 30 0RF Follow-up/Referrals: Lisseth Cardenas MD [Physician] - (GENERAL SURGERY) Osvaldo Arana DO [Primary Care Provider] - Time of Disposition: 18:53
[2024-06-03 15:14] LABS: Basophils Percent Auto 0.2 % (0.2-1.2); Eosinophils Absolute Auto 0.1 K/mm3 (0-0.3); Eosinophils Percent Auto 0.9 % (0-4.4); Hemoglobin 12.1 g/dL (12.0-15.0); Immature Granulocyte Absolute 0.04 K/mm3 (0.00-0.031); Immature Granulocyte Percent A 0.4 % (0-0.5); Lymphocytes Absolute Auto 1.49 K/mm3 (0.9-3.2); Lymphocytes Percent Auto 15.4 % (18.3-44.2); Mean Corpuscular HGB Conc 32.7 g/dl (32-36); Mean Corpuscular Hemoglobin 27.3 pg (26-34); Mean Corpuscular Volume 83.5 fl (80-100); Mean Platelet Volume 10.3 fl (7.4-10.4); Monocytes Absolute Auto 0.5 K/mm3 (0.1-0.6); Monocytes Percent Auto 5.4 % (2.6-8.5); Neutrophils Absolute Auto 7.5 K/mm3 (1.3-6.7); Neutrophils Percent Auto 77.7 % (45.5-73.1); Platelet Count Result 330 k/mm3 (150-375); Red Blood Count 4.43 M/mm3 (4.2-5.4); Red Cell Distribution Width 13.4 % (11.5-14.5); White Blood Count 9.7 K/mm3 (4.5-10.0)
[2024-06-03 15:22] LABS: Add Urine Microscopic? YES; Appearance Urine Clear (Clear); Bacteria Urine None Seen /hpf; Bilirubin Urine Negative (Negative); Blood Urine 2+ (Negative); Color Urine Yellow (Yellow); Glucose Urine UA Negative (Negative); Ketones Urine Negative (Negative); Leukocyte Esterase Ur Negative LEU/UL (Negative); Nitrate Urine Negative (Negative); Non Pathogenic Casts 0-2; Protein Urine Negative (Negative); Specific Grav Ur 1.008 (1.001-1.035); Squamous Epithelial Cell Urine None Seen /hpf (Few); Urobilinogen Urine 0.2 mg/dL (<2.0); WBC Urine 0-5 /hpf (0-3); pH Urine 5.5 (5.0-9.0)
[2024-06-03 15:25] LABS: Alanine Aminotransferase 22 U/L (6-35); Albumin Level 4.3 g/dL (3.5-5.1); Alkaline Phosphatase 95 U/L (38-126); Anion Gap 4 mmol/L (4-12); Aspartate Amino Transferase 26 U/L (14-36); Bilirubin,Total 0.6 mg/dL (0.2-1.3); Blood Urea Nitrogen 17 mg/dL (7-17); Calcium 11.3 mg/dL (8.4-10.2); Carbon Dioxide 28 mmol/L (22-30); Chloride 107 mmol/L (98-107); Estimated CRCL calculation 94 ml/min; Estimated Glomerular Filt Rate > 60; Glucose 97 mg/dL (65-110); Lipase 90 U/L (23-300); Potassium 4.2 mmol/L (3.4-5.0); Sodium 139 mmol/L (137-145)
[2024-06-03 15:42] VITALS: BP 134/96; PULSE 78; RESP 20; TEMP 36.8; O2SAT 98
[2024-06-03] MEDS: AMOXICILLIN/CLAVULANATE K 875-125 MG TAB 1 TABLET PO (18:21)
[2024-06-03 19:10] VITALS: BP 138/104; PULSE 84; RESP 16; TEMP 36.4; O2SAT 100
== END 2024-06-03 19:12 | disposition home or self-care (01) ==
PROVIDERS: Emergency Provider Physician Assistant; PCP Internal Medicine
DX: K81.0 Acute cholecystitis (principal); E83.52 Hypercalcemia; I10 Essential (primary) hypertension; K21.9 Gastro-esophageal reflux disease without esophagitis; E78.5 Hyperlipidemia, unspecified; F41.9 Anxiety disorder, unspecified; Z87.891 Personal history of nicotine dependence
CPT/HCPCS: 36415; 74177; 80053; 81001; 83690; 85025; 99284; A9270; Q9967

== ENCOUNTER 2024-06-11 00:13 | Day surgery (SDC) | payer BC, SELFPAY ==
[2024-06-07 08:51] VITALS: BMI 39.9
--- NOTE | 2024-06-07 08:52 | PC.NURSE ---
Report to the Outpatient Waiting Room, entrance under the green pavilion located off [facility], at time _0730_ on date _[id number]_. Planned Procedure Time: _0930_.? Time changes happen often and if your time is changed the preop area will call you the afternoon before. - You and your visitor will be asked to self-screen and do not enter if you have any COVID symptoms. Please call surgeon if you need to reschedule. - A mask is optional within the hospital at this time. Patients may have clear liquids (water, carbonated beverages, clear teas, apple juice) until 3 hours prior to surgery with a maximum of 20 ounces. - No food from midnight until time of surgery and no smoking. This includes no chewing gum, candy or mints. Take only the following medications with a SIP of water on the morning of surgery: __Antibiotic DO NOT STOP ANY OF YOUR OTHER PRESCRIPTION MEDICATIONS PRIOR TO SURGERY EXCEPT THE FOLLOWING Medications to discontinue per physician ____Prenatal vitamin Date to take last egvg____[phone]____ Please no make-up, nail estonian, hairspray, perfume, deodorant, or body powder the day of surgery.? No jewelry (including any body piercings) or valuables the day of surgery, leave them at home.? Please take a shower or bath the night before, or the morning of, surgery with an antibacterial soap.? Wear comfortable, loose fitting clothing.? - Jewelry must be removed prior to entering the operating room.? Rings and piercings that are not removed may be cut off. - The hospital will not accept responsibility for valuables.? - Please leave all valuables, including medications, at home the day of surgery. If you are going home after surgery, a licensed class c driver must drive you home.? - NO public transportation without another adult if you receive anesthesia. - We recommend that an adult stay with you for 24 hours following discharge. - We also recommend that you do not drive, make important decision, drink alcoholic beverages, or take any drugs that were not prescribed by your health care provider for at least 24 hours after your discharge time. Follow any additional instructions given to you from your surgeon. Telephone instructions given to __Autumn__and asked if any additional questions and then verbalized understanding. Patient advised to call surgeon office or pre surgery nurse liaison [phone] if any additional questions.
[2024-06-11] VITALS (11 sets, daily range): BP systolic 120–142; BP diastolic 75–97; PULSE 82–109; RESP 14–25; TEMP 36.2–36.9; O2SAT 96–100
[2024-06-11 07:44] LABS: Amylase 58 U/L (30-110)
[2024-06-11] MEDS: KETOROLAC 15 MG/ML VIAL (*BKC) IV PUSH ×2 (07:45→10:44)
[2024-06-11] MEDS: LACTATED RINGERS 1,000 ML 30 ML IV CONT ×2 (07:45→11:03)
[2024-06-11] MEDS: ACETAMINOPHEN 500 MG TABLET 1000 MG PO (07:45)
--- NOTE | 2024-06-11 08:45 | WPDANESEPPF ---
Anes - Initial Pre Proc Eval Procedure: Operation Date: 06/11/24 08:30 Proposed Procedures p Laparoscopic Cholecystectomy - Nolan Machado MD Date/Time: 06/11/24 08:45 Surgeon: Nolan Machado MD Pre Op Diagnosis: chronic calculous cholecystitis Patient Data Age: 28 Gender: F Height: 1.6 m Weight: 100.6 kg Last Vital Signs Temp 97.1 F L 06/11/24 07:45 Pulse 87 06/11/24 07:45 Resp 14 06/11/24 07:45 BP 142/84 H 06/11/24 07:45 Pulse Ox 100 06/11/24 07:45 O2 Del Method Room Air 06/11/24 07:45 Allergies Allergy/AdvReac Type Severity Reaction Status Date / Time No Known Allergies Allergy Verified 06/11/24 08:18 Home Medications ?Medication ?Instructions ?Recorded ?Confirmed ?Type PNV 153-FA 400 mcg-om3 35 mg-dha 1 tablet PO DAILY 11/03/23 06/11/24 History 25 mg-epa 5 mg-fish oil chew tablet ( Gummies) amoxicillin 875 mg-potassium 1 tablet PO Q12H 10 days #20 tabs 06/03/24 06/11/24 Rx clavulanate 125 mg tablet Laboratory Tests 06/11/24 07:19 Amylase 58 U/L (30-110) Patient hx anesthesia problems: none Family hx anesthesia problems: none Results Review: All pre-operative results and documents have been reviewed as part of the pre-operative evaluation. 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 Smoking status: Former smoker Alcohol intake: current Substance use: never Do You Feel Safe in your Home?: Yes Lack of Transportation: No Lack of Food: Never True Current Housing: I Have Housing Concerned About Future Housing: No Difficulty Paying Gas/Electric Bills: No Difficulty Paying for Meds: No Currently Unemployed: No Education: Bachelor's Degree Difficulty w/ Childcare or Family Care: No Living arrangements: with family Spiritual care concerns: No Anes - Eval Final PreProcedure Day of Procedure 06/11/24 08:45 Patient weight: obese Heart: regular rate and rhythm Lungs: clear to auscultation Airway: Mallampati scale class II Neurological: alert and oriented Last oral intake: >/= 8 hours ASA classification: II Emergent: no Anesthetic plan: proceed Anesthesia type and monitoring: general ETT and standard monitoring Results Review: All pre-operative results and documents have been reviewed as part of the pre-operative evaluation. BMI 39. Prev HTN w , not treated currently. Informed Consent: The patient's anesthetic plan and its attendant risks and benefits were discussed with the patient/family/POA. Questions were solicited and answers provided to the satisfaction of the patient/family/POA.
--- NOTE | 2024-06-11 09:29 | WPDHPUPDATE1 ---
History and Physical Update Update Date/Time: 06/11/24 09:29 History and Physical has been reviewed, including an updated exam of the patient. There are NO changes in the patient's condition. Risks, benefits, and alternatives have been discussed and questions answered. Patient agrees to proceed with procedure.
[2024-06-11] MEDS: ceFAZolin 2 GM/D5W 50 ML 2 GM/50 ML BAG IVPB (09:38)
[2024-06-11] MEDS: BUPivacaine HCL 0.5% PF 30 ML VIAL INFILTRATE (10:08)
[2024-06-11] MEDS: LIDO 1%/EPINEPHRINE 1:100,000 20 ML VIAL 30 ML INFILTRATE (10:08)
--- NOTE | 2024-06-11 11:13 | PM.OP ---
Procedure Note - Brief Procedure Note - Brief Date of procedure: 06/11/24 chronic calculous cholecystitis Post-op diagnosis: Same Procedure performed: Laparoscopic cholecystectomy. Surgeon: Nolan Machado MD Anesthesia: GETA Estimated blood loss (mL): 20 Drains: No Packing: No Pathology: Yes (Gallbladder and stones to pathology) Complications: No immediate complications Condition: Stable Disposition: PACU
[2024-06-11] MEDS: fentaNYL CITRATE INJ (*CRX) 100 MCG/2 ML VIAL 25 MCG IV PUSH ×8 (11:23→12:06)
[2024-06-11] MEDS: oxyCODONE HCL (*CRX) 5 MG TAB IR PO (12:20)
[2024-06-11] MEDS: ONDANSETRON INJ 4 MG/2 ML VIAL IV PUSH (12:34)
--- NOTE | 2024-06-12 10:11 | P.OP_ITS ---
Procedure Note - Detailed Date of Procedure 06/11/24 Pre-op Diagnosis Chronic calculous cholecystitis Post-op Diagnosis Same Procedure Performed Laparoscopic cholecystectomy Surgeon Nolan Machado MD Anesthesia General Indications patient is a 28-year-old female who is about 4 weeks . She has been continuing to have right upper quadrant epigastric abdominal pain. She is to has known gallstones. She was actually in the emergency room and diagnosed with acute cholecystitis but did not had elevated white blood cell count her pain was well controlled and was discharged home from the emergency room on oral antibiotics. She was seen back in the office and was for doing pretty well aside for having pain and nausea with eating. She is being brought to operating now for elective laparoscopic cholecystectomy due to chronic cholecystitis secondary to cholelithiasis. Findings Patient had dilated gallbladder with chronic thickening and some omental adhesions to the gallbladder wall consistent with prior acute inflammation. Multiple gallstones were palpated the gallbladder after was removed. Description of Procedure After informed consent was obtained patient brought to the operating room she was placed supine position and general endotracheal anesthesia was administered. The abdomen was then prepped draped usual sterile fashion. Time-out was then performed correctly identifying the patient as well as procedure to be performed. She was given perioperative IV antibiotics. Entered the abdomen left upper quadrant utilizing a 5mm Optiview port. Once inside the abdomen insufflated to adequate pneumoperitoneum of 15mmHg of CO2. There were no adhesions around the umbilicus to obscure my view of the area. I then placed a 5mm Optiview port in a periumbilical position. Laparoscopic was then switched over this periumbilical port site and then looking to the upper portions of the abdomen I can see the gallbladder was distended with a thickened wall a chronic inflammation and some chronic adhesions of the omentum to the gallbladder wall but no acute edema or erythema of the gallbladder wall. I then placed additional trocar ports to include a 10mm epigastric trocar port 2 more 5mm Optiview ports in the right subcostal region. The gallbladder was then held laparoscopic grasper at the dome and elevated. The omental adhesions to the gallbladder wall were stripped down bluntly as well as divided with the hook electrocautery. Once the he should were then taken down I then elevated the gallbladder over the right half liver towards right shoulder. Second grasper was then used to hold the gallbladder at the infundibulum. I then proceeded to strip down the visceral peritoneum off of the infundibular gallbladder until I identified the cystic duct. The cystic duct was then dissected out circumferentially. The cystic artery was identified and dissected out circumferentially as well. Posterior wall the gallbladder at the infundibulum dissected free of the liver until the critical view was obtained. At this point I then placed 2 clips proximally cystic duct and 2 clips distally high on infundibular gallbladder. Cystic duct was then divided with Endo Kathe. In a similar fashion cystic artery was clipped and divided as well. The gallbladder was then resected off the liver utilized electrocautery without spilling any gallstones or any bile. The gallbladder was then placed into an Endo-Catch bag and brought out through the epigastric port site. The gallbladder gallstones within were sent to pathology for examination. I then examined the gallbladder bed there was no bleeding. I irrigated sterile saline solution hemostasis was good. There is no evidence of bile leak. I then aspirated the fluid from the right upper quadrant the abdomen from the pelvis. I then removed all the trocar ports under direct visualization all port sites appeared hemostatic. I then allowed the abdomen decompress . The epigastric 10mm trocar port fascial def ect was then closed utilizing 0 Vicryl suture. The skin edges in all the port sites were then approximated utilizing a running subcuticular 4-0 Monocryl suture. The incisions were then cleaned and then skin glue was applied. The patient tolerated the procedure well no complications. All sponges, needles, and instrument counts were correct at the end procedure. EBL was _ 25__cc. The patient was awakened and taken to recovery in stable and satisfactory condition. Implants none Estimated Blood Loss 25 Drains No Packing No Pathology Yes ( gallbladder and gallstones sent to pathology) Complications No immediate complications Condition Stable Disposition PACU [facility] Billing Surgery - Charge Forward: Surgery Billing
== END 2024-06-11 14:04 | disposition home or self-care (01) ==
PROVIDERS: PCP Internal Medicine; Visit Provider Surgery
PROC: 0FT44ZZ Resection of Gallbladder, Percutaneous Endoscopic Approach (ICD-10-PCS; CPT 47562; principal; 2024-06-11 08:30)
DX: K80.00 Calculus of gallbladder with acute cholecystitis without obstruction (principal); K66.0 Peritoneal adhesions (postprocedural) (postinfection); I10 Essential (primary) hypertension; E78.5 Hyperlipidemia, unspecified; K21.9 Gastro-esophageal reflux disease without esophagitis; F41.9 Anxiety disorder, unspecified; E66.9 Obesity, unspecified; Z68.39 Body mass index [BMI] 39.0-39.9, adult; Z98.890 Other specified postprocedural states; Z87.891 Personal history of nicotine dependence; Z80.49 Family history of malignant neoplasm of other genital organs; Z80.0 Family history of malignant neoplasm of digestive organs
CPT/HCPCS: 47562; 36415; 82150; 88304; A9270; J0690; J1100; J1885; J2003; J2004; J2250; J2405; J2704; J3010; J7120

== ENCOUNTER 2024-06-26 11:13 | Outpatient (CLI) | payer BC, SELFPAY ==
--- OUTSIDE RECORDS SUMMARY | 2024-06-26 12:22 | XMS_ITS | Clinical Summary ---
Author Organization [facility] Address [address] [place] [id number] Phone [email or web address] Care Team Providers Care Infection Prevention Practitioner Name Role Phone Unavailable Primary Care Provider Unavailabl e Immunizations Name Administration Dates Next Due Influenza, (Afluria Fluarix Flulaval Fluzone) quad, PF ([id number]-[id number]) 03/10/2023 Social History Tobacco Use Types Packs/Day Years Used Date Smoking Tobacco: Never Assessed Stress Answer Date Recorded Stress in your Life Not on file 04/04/2024 Dealing with Stress 3 04/04/2024 Comments Unknown Sex and Gender Information Value Date Recorded Sex Assigned at Female 03/10/2023 1:53 PM CDT Legal Sex Female 11:04 AM CDT Gender Identity Female 03/10/2023 1:53 PM CDT Sexual Orientation Not on file Plan of Treatment Health Maintenance Due Date Last Done Comments Dental Cleaning/Exam 1995 HIV Screening 1995 Hepatitis C Screening 1995 Cervical Cancer Screening 2011 Annual Preventive Exam 2013 Hep B Infection Screening - Triple Screen 2013 Hepatitis B Immunization (1 of 3 - 19+ 3-dose series) 2014 Tetanus Diphtheria and Pertu ssis Immunization (1 - Tdap) 2014 Covid-19 Immunization (1 - 2 season) 2024 Influenza Immunization (#1) 2024 03/10/2023 HIB Immunization Aged Out No longer e ligible based on patient's age to complete this topic HPV Immunization Aged Out No longer e ligible based on patient's age to complete this topic Hepatitis A Immunization Aged Out No longer eligible based on patient's age to complete this topic Pneumococcal: Ped (0 to 5 Yr s) and At-Risk Member (6 to 64 Yrs) Aged Out No longer e ligible based on patient's age to complete this topic Polio Immunization Aged Out No longer eligible based on patient's age to complete this topic Varicella Immunization Aged Out No lo nger eligible based on patient's age to complete this topic
[2024-06-26 21:28] LABS: Alanine Aminotransferase 39 U/L (6-35); Albumin Level 4.5 g/dL (3.5-5.1); Alkaline Phosphatase 97 U/L (38-126); Anion Gap 13 mmol/L (4-12); Aspartate Amino Transferase 33 U/L (14-36); Bilirubin,Total 0.4 mg/dL (0.2-1.3); Blood Urea Nitrogen 13 mg/dL (7-17); Carbon Dioxide 24 mmol/L (22-30); Chloride 103 mmol/L (98-107); Estimated Glomerular Filt Rate > 60; Glucose 88 mg/dL (65-110); Potassium 4.5 mmol/L (3.4-5.0); Sodium 140 mmol/L (137-145)
== END 2024-06-26 11:14 | disposition home or self-care (01) ==
PROVIDERS: PCP Internal Medicine; Visit Provider Nurse Practitioner
DX: E83.52 Hypercalcemia (principal)
CPT/HCPCS: 36415; 80053